=== PATIENT | female | born 1940 | race Caucasian/White ===

== ENCOUNTER → 2017-08-16 10:15 | Outpatient (CLI) | payer MEDICARE, BC, SELFPAY ==
[2017-08-16 12:37] LABS: Anion Gap 8 (5-15); BUN 20 mg/dL (7-18); BUN/Creat Ratio 27.4 RATIO (10-20); Calcium,Total 8.6 mg/dL (8.5-10.1); Chloride 105 mmol/L (98-107); Cholesterol 223 mg/dL (200); Creatinine, Serum 0.73 mg/dL (0.55-1.02); EST Glomerular Filtration Rate 82 mL/min (>60); Est Glom Filt Rate - Afr Amer 100 mL/min (>60); Glucose 80 mg/dL (74-106); High Density Lipoprotein 93 mg/dL; Sodium Level 140 mmol/L (136-145); Thyroid Stim Hormone (TSH) 2.24 uIU/mL (0.358-3.74); Triglycerides 119 mg/dL; Very Low Density Lipoprotein 24 mg/dL (5-40)
== END ==
PROVIDERS: Family Provider Family Medicine; PCP Family Medicine; Visit Provider Family Medicine
DX: I10 Essential (primary) hypertension (principal); E03.9 Hypothyroidism, unspecified; R49.0 Dysphonia
CPT/HCPCS: 36415; 80048; 80061; 84443; 92507

== ENCOUNTER → 2017-09-06 12:59 | Outpatient (CLI) | payer MEDICARE, BC, SELFPAY ==
--- NOTE | 2017-09-06 13:03 | RAD_ITS ---
STUDY: SWALLOWING STUDY REASON FOR EXAM: Female, 77 years old. Dysphagia. TECHNIQUE: The examination was performed with Speech Pathology in attendance. Under fluoroscopic observation, the patient ingested thin barium, thick barium, barium pudding, and barium coated cracker. FLUOROSCOPY TIME: 1:30 minutes/seconds. 1410 spot images were obtained. RADIOLOGIST INVOLVEMENT: Radiologist was present and providing direct supervision. COMPARISON: None. FINDINGS: The following was observed during swallowing of the various mixtures of barium: Thin Barium: There was no evidence of aspiration or laryngeal penetration. Barium Pudding: There was no evidence of aspiration or laryngeal penetration. Barium Coated Cracker: There was no evidence of aspiration or laryngeal penetration. RAD/Swallowing Function w/Video IMPRESSION: Normal tailored barium swallow study. No evidence of increased risk for aspiration. The swallow study findings were discussed with the patient by the speech pathologist at the conclusion of the examination. Please see speech pathology report for more information and recommendations. Electronically Signed: Yasir Calixto MD at 13:58 EDT Tel [phone], Service support ,
--- NOTE | 2017-09-06 13:30 | SP.MBSS_ITS ---
PRIMARY / SECONDARY DIAGNOSIS: dysphagia (R13.10) REFERRING PHYSICIAN: Dr. Sunday Hatch MD CURRENT DIET: regular textures, thin liquids DENTITION: WFL MENTAL STATUS: WNL RESPIRATORY STATUS: O2 via room air PREVIOUS MODIFIED BARIUM SWALLOW STUDY: none REASON FOR REFERRAL: Patient is a 77 year old female referred for a modified barium swallow (MBS) study to objectively assess the Patients oropharyngeal swallow function under fluoroscopy secondary to concerns for PO intake intolerance. Patient currently undergoing skilled speech-language intervention at [facility] / [facility] targeting dysphonia of unknown etiology, with the Patient reporting intermittent globus sensation without odynophagia, occasional jaw pain; Patient further reports gastroesophageal reflux managed well with Omeprazole (40mg). MEDICAL HISTORY: Bronchiolitis obliterans with organizing pneumonia (BOOP), gastroesophageal reflux disease, right bundle branch block, osteoporosis, hypertension, depression, hypothyroidism, status post hip hemiarthroplasty, former smoker. STUDY FINDINGS: Patient participated in a Modified Barium Swallow (MBS) study on 09/06/2017. Dr. Calixto was the radiologist present for this evaluation. This study was recorded in the lateral view and images were sent to PACs for storage. The following consistencies were presented to this patient for analysis of oropharyngeal swallow function: thin liquids, pudding, and a regular textured, Ai [employer] cookie. Results of the MBS are as follows: PENETRATION / ASPIRATION SCALE ([place]): 1 = does not enter airway 2 = enters airway/above vocal folds/ejected 3 = enters airway/above vocal folds/not ejected 4 = enters airway/contacts vocal folds/ejected 5 = enters airway/contacts vocal folds/not ejected 6 = enters airway/below vocal folds/ejected 7 = enters airway/below vocal folds/not ejected despite effort 8 = enters airway/below vocal folds/no effort PENETRATION / ASPIRATION SCALE (SCORE) WITH VIDEOFLOROSCOPIC SCALE SCORE: Thin liquid - 5 mL tsp.: 1 Thin liquids via cup (single sip): 1 Thin liquids via cup (single sip): 1 Thin liquids via cup (single sip): 1 Thin liquids via cup (single sip): 1 Thin liquids via cup (single sip): 1 Thin liquids via cup (single sip): 1 Thin liquids via cup (single sip): 1 Thin liquids via cup (sequential swallows): 1 Pudding via spoon: 1 Regular textured cookie: 1 Thin liquids via straw (single sip): 1 Thin liquids via straw (single sip): 2 IMPRESSION: DIAGNOSIS: swallow function grossly within normal limits ORAL PHASE CHARACTERIZED BY: LABIAL SEAL: no labial escape TONGUE CONTROL DURING BOLUS MANIPULATION: intermittent / brief posterior escape of less than half of bolus BOLUS PREPARATION / MASTICATION: timely and efficient chewing and mashing BOLUS TRANSPORT / LINGUAL MOTION: brisk tongue motion ORAL RESIDUE: complete oral clearance PHARYNGEAL PHASE CHARACTERIZED BY: INITIATION OF PHARYNGEAL SWALLOW: bolus head in valleculae at first hyoid excursion SOFT PALATE ELEVATION: no bolus between soft palate and pharyngeal wall LARYNGEAL ELEVATION: complete superior movement of thyroid cartilage with complete approximation of arytenoids cartilage to epiglottic petiole ANTERIOR HYOID EXCURSION: complete anterior movement EPIGLOTTIC MOVEMENT: complete epiglottic inversion LARYNGEAL VESTIBULE CLOSURE AT HEIGHT OF SWALLOW: complete laryngeal vestibule closure with no air/contrast in laryngeal vestibule PHARYNGEAL STRIPPING WAVE: pharyngeal stripping wave present / complete PHARYNGOESOPHAGEAL SEGMENT OPENING: complete distension and complete duration with no obstruction of flow TONGUE BASE RETRACTION: trace column of contrast between tongue base and posterior pharyngeal wall PHARYNGEAL RESIDUE: trace residue within or on pharyngeal structures ESOPHAGEAL PHASE CHARACTERIZED BY: ESOPHAGEAL BOLUS CLEARANCE IN THE UPRIGHT POSITION: complete clearance; esophageal coating DIET TEXTURE RECOMMENDATIONS: Will recommend a regular textured, thin liquid diet. INTERPRETATION OF RESULTS: The Patient presents with mastication and deglutition abilities found to be grossly within normal limits in comparison to age matched peers. No aspiration appreciated throughout consistencies trialed, slight penetration during thin liquid via straw trials, with results within normal limitations. 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 RECOMMENDATIONS: Provided brief overview of signs and symptoms of aspiration, with recommendations for the Patient to further discuss symptoms with PCP. No further skilled speech-language services warranted at this time targeting dysphagia. ADDITIONAL COMMENTS/RECOMMENDATIONS: Results and recommendations were discussed with the Patient immediately following MBS completion, with the Patient verbalizing understanding and agreement with all recommendations and education provided. IMAGE COUNT: 1410 G-CODES: SWALLOWING [id number] Current Status: SWALLOWING G8997 Goal Status: SWALLOWING G8998 Discharge Status:
== END ==
PROVIDERS: Family Provider Family Medicine; PCP Family Medicine; Visit Provider Otolaryngology
DX: R13.10 Dysphagia, unspecified (principal)
CPT/HCPCS: 74230; 92611; G8996; G8997; G8998

== ENCOUNTER 2017-09-08 14:00 | Outpatient (RCR) | payer MEDICARE, BC, SELFPAY ==
--- NOTE | 2017-08-09 13:16 | HP.SP.AD_ITS ---
History - History Date of Eval: 08/09/17 Previous speech therapy: Yes Results: Pt reports was evaluated for hoarseness at this facility approximately one year ago, but did not participate in treatment due to shingles. Other Relevant Medical History/Diagnoses/Surgery: Pt will be seeing a nurse auditor 08/10/2017 for further evaluation of chronic SOB at rest for the past several months. Pt is currently oxygenating on room air. She was diagnosed was BOOP, a form of pneumonia, a few years ago which has left scar tissue on her lungs. Pt is additionally diagnosed with GERD. Medications related to this diagnosis: Omeprazole DR, 40mg/day, for GERD management. Additionally, ENT gave pt a nasal spray to help with postnasal drainage. Pt reports that with medications, both diagnoses are well managed. Smoking Status: Former smoker Hx Smoking: Yes Years Smokin Hx Smoking Cessation Date: 20 years ago Hx Tobacco Use: No Hx Smoking Exposure: No - Pain Is pain an issue with your current prescribed condition?: No - Personal Patients Living Arrangements: With Significant Other Patient Allergies - Allergies Allergies Gzsyccl-Utv-Tib Reductase Inhibitor Allergy (Verified 04/11/17 16:26) Hives meperidine HCl [From Demerol] Adverse Reaction (Verified 04/11/17 16:26) Nausea/Vom/Diarrhea Objective Oral Motor - Oral Status Dentition: WNL - Labial Impairment: WNL Observation at Rest: WNL Closure: WNL Pucker: WNL Retraction: WNL Alternating Pucker/Retraction: WNL Involuntary Movement noted: No - Labial Comments Comments: Pt reports some left jaw pain with labial retraction and additionally with mastication and oral opening. Has seen a doctor approximately one month ago who did ex-rays but found all structures to be WNL. Per pt, the doctor gave her a plastic tooth gaurd to wear when sleeping. - Lingual Impairment: Mild Protrusion: WNL Lateralization: Mild Involuntary Movement: No - Lingual Comments Comments: Pt with difficulty lateralizing tongue to left side of oral cavity. - Jaw Impairment: Mild Observation at Rest: WNL Symmetry, Range, Strength, Tone: WFL Opening: Mild Closing: WNL Involuntary Movement: No - Jaw Comments Comments: Pt able to open oral cavity to a functional measurement, but reports mild pain. - Respiratory Status Respiratory Status: Room Air Subjective Dysphagia - Symptoms Reported Symptoms/Problems with: Coughing, Choking, Difficulty Swallowing Solids, Difficulty Swallowing Liquids, Difficulty Swallowing Pills - Current Diet Solids Current Diet: Regular - Current Diet Liquids Current Liquids: Thin Objective Dysphagia - Thin Liquids Administred via: Cup Symptoms: Throat Clearing, Couging Laryngeal Elevation: Impaired Oral Holding: No Comments: Administered single sips of thin liquids via cup without overt s/s aspiration. Pt self-fed larger single sips with immediate throat clear followed by cough. Throughout trials, pt with consistent throat clearing and coughing following single sips and consecutive swallows of thin self-fed via cup. - Pureed Laryngeal Elevation: Impaired Oral Holding: No Comments: No overt s/s aspiration with trials of pureed textures. - Regular Laryngeal Elevation: Impaired Oral Holding: No AP Movement: WNL Patient Report: Pt reports having to be careful with dry textures as they seem to get stuck in her throat and tickle her throat. Comments: No overt s/s aspiration with trials of regular textures. Dysphagia Assessment - Impact Comments: The pt reports difficulty swallowing pills as they seem to get stuck in her throat as well as frequent choking when drinking. She states she has to be careful with dry textures and cannot order large sandwhiches as she has pain when opening her mouth wide and when masticating. - Recommendations Modified Barium Swallow/Cookie Swallow Recommended: Yes Subjective Voice - Informal Questioner Do you scream (anger, sporting event, work, noisy envirmonment): None Do you raise your voice (e.g. parenting, calling from room to room, etc.): None Do you talk for long periods of time without a break (teacher, kemp): None Are you a talker: Average Do you clear your throat: More than average Do you cough: More than average Do you sing: Less than average How often do you use the telephone: Less than average Do you do impersonations, character voices or unusual sound effects: None - Intake Water (ounces): 24 Coffee (ounces): 16 - Alcoholic Beverage Intake Intake: Never Subjective Clinical Impression - Adult Clinical Impression Dysphonia: any 'abnormal' vocal quality suggesting an interruption of normal production: Present Hoarseness: excessive 'noise' in the signal creating an unpleasant, rough vocal quality: Present Breathiness: an audible excape of air or a 'weak' vocal tone suggestive of glottal insufficiency: Present Harshness: irregular vocal fold vibrations creating a 'raspy' or unmusical tone ; a combination of hoarseness and breathiness: Present - Non-Phonatory Behaviors/Respiration Reduced loudness or vocal weakness: Present Limited breath support for speech: Present Clavicular breathing: excessive movement of the chest and shoulders during inspiration: Present Objective Voice - Observational Assessment Maximum Phonation Time in seconds: 2.76 S/Z Ratio: 0.85 Sustained /s/: 10.53 Sustained /z/: 12.43 Other Impressions - Comments Voice History -: Pt was seen by Dr. Hatch, ENT, several weeks ago. Per pt report, her vocal folds do not approximate. She states that her cannot understand her and that she is having a great deal of difficulty communicating over the phone. The pt does present with a soft, harsh vocal quality and demonstrates clavicular breathing secondary to shortness of breath. Plan - Plan Plan: Speech-language therapy is recommended at this time as the patient's vocal quality makes it difficult for her to communicate her wants/needs, as well as emergent/medical concerns, across environments. Additionally, the patient's risk for aspiration puts her at further risk for secondary complications. - Recommendations MBS: Yes Treatment Warranted: Yes - Frequency Frequency: 1x/Week Duration: 4-6 Weeks - Prognosis Prognosis: Good - Goals that are Established: Determination:: Goals will be added/modified as deemed necessary and appropriate. Therapy will be discontinued when results of re-evaluation indicate therapy is no longer needed or lack of progress has been documented. - Goal #1-5 Goal #1: The pt will independently demonstrate adequate breath support for speech by utilizing abdominal breathing, as medically able, and appropriate phrasing to reduce harshness and increase vocal intensity Accuracy: 90% # Sessions: 3 Goal #2: The pt will demonstrate adequate vocal hygiene (GERD and postnasal drip management, H2O intake, decreased throat clearing, etc...) Accuracy: 90% # Sessions: 3 Goal #3: The pt will demonstrate improved vocal quality and intensity secondary to completion of vocal adduction exercises Accuracy: 90% # Sessions: 3 Goal #4: The pt will participate in a modified barium swallow study in order to objectively assess oropharyngeal swallow function. Education - Patient Instruction Patient Education: Diagnosis, Treatment Plan, Goals
--- NOTE | 2017-09-08 15:44 | HP.SP.DC ---
ST Discharge Summary - Discharged: Discharge: Kaylie Infante is discharged from skilled speech-language therapy effective 09/08/17. Kaylie attended four sessions following her intial evaluation for vocal hoarseness. Kaylie attended therapy consistently and attempted home recommendations, but limited progress was made overall secondary to poor breath support for phonation due to pulmonary scarring/fibrosis. The pt was educated on vocal adduction exercises to improve mild vocal fold bowing as well as appropriate phrasing during speech. Results of therapy were discussed with Kaylie who agreed to discharge at this time. Please reconsult if pulmonary function improves without change in phonation.
== END 2017-09-08 19:00 | disposition home or self-care (01) ==
LOC: SP 14:00
PROVIDERS: Family Provider Family Medicine; PCP Family Medicine; Visit Provider Otolaryngology
DX: R49.0 Dysphonia (principal)
CPT/HCPCS: 92507; 92524

== ENCOUNTER → 2017-09-21 09:49 | Outpatient (CLI) | payer MEDICARE, BC, SELFPAY ==
--- NOTE | 2017-09-21 10:09 | RAD_ITS ---
STUDY: X-RAY CHEST REASON FOR EXAM: Female, 77 years old. Elevated right hemidiaphragm. TECHNIQUE: PA and lateral views of the chest. COMPARISON: Comparison is made with prior study dated April 11, 2017. FINDINGS: Stable elevation of the right hemidiaphragm. Increased linear markings at the lung bases suggestive of bibasilar scarring. This is essentially unchanged. There is no demonstrated pleural abnormality. Normal size heart. Normal mediastinum and tobi. Normal visualized pulmonary arteries. Normal visualized aortic arch and descending thoracic aorta. There is demineralization of the osseous structures. Normal visualized ribs, clavicles, and shoulders. There is no demonstrated abnormality of the visualized soft tissue structures of the upper abdomen. RAD/Chest PA and Lateral IMPRESSION: Stable elevation of the right hemidiaphragm with stable increased markings at the lung bases suggestive of linear scarring. Electronically Signed: Yasir Calixto MD at 13:04 EDT Tel [phone], Service support ,
--- NOTE | 2017-09-21 10:15 | RAD_ITS ---
STUDY: SNIFF TEST. REASON FOR EXAM: Female, 77 years old. Elevated right hemidiaphragm. FLUOROSCOPY TIME (if supplied): (0:03) minutes/seconds TECHNIQUE: A sniff test was performed under fluoroscopic imaging. COMPARISON: None. FINDINGS: There is elevation of the right hemidiaphragm. There is normal movement of the right and left hemidiaphragms during inspiration and expiration. RAD/Fluoroscopy 1 Hr or Less IMPRESSION: Elevation of the right hemidiaphragm. There is no evidence of paralysis of the diaphragm. Electronically Signed: Yasir Calixto MD at 10:47 EDT Tel [phone], Service support ,
== END ==
PROVIDERS: Family Provider Family Medicine; PCP Family Medicine; Visit Provider Internal Medicine Pulmonary Disease
DX: J98.6 Disorders of diaphragm (principal)
CPT/HCPCS: 71046; 76000

== ENCOUNTER → 2017-11-22 10:48 | Outpatient (CLI) | payer MEDICARE, BC, SELFPAY ==
[2017-11-22 11:36] LABS: Allen Test POS; Base Excess 2 mmol/L (-2 to +2); Bicarbonate 25.3 mmol/L (22-26); Blood Gas Specimen Type ART; O2 Delivery Device Room Air; PO2 72 mmHG (75-100); SITE R Radial; SO2 95 % (95-99); Time Given 1130; Total Carbon Dioxide 26 mmol/L; pH 7.47 (7.35-7.45)
== END ==
PROVIDERS: Family Provider Family Medicine; PCP Family Medicine; Visit Provider Internal Medicine Pulmonary Disease
DX: R06.00 Dyspnea, unspecified (principal); R09.02 Hypoxemia
CPT/HCPCS: 36600; 82803

== ENCOUNTER → 2017-12-28 16:07 | Outpatient (CLI) | payer MEDICARE, BC, SELFPAY ==
[2017-12-28 17:37] LABS: ALB/GLOB Ratio 1.1 RATIO (0.9-2.4); AST(SGOT) 26 U/L (15-37); Alanine Aminotransfer ALT/SGPT 29 U/L (13-56); Alkaline Phosphatase 66 U/L (45-117); Anion Gap 9 (5-15); BUN 20 mg/dL (7-18); BUN/Creat Ratio 25.7 RATIO (10-20); Calcium,Total 9.6 mg/dL (8.5-10.1); Chloride 102 mmol/L (98-107); Creatinine, Serum 0.78 mg/dL (0.55-1.02); EST Glomerular Filtration Rate 76 mL/min (>60); Est Glom Filt Rate - Afr Amer 92 mL/min (>60); Globulin 3.7 g/dL (2.2-4.2); Glucose 79 mg/dL (74-106); Magnesium 2.4 mg/dL (1.6-2.6); Potassium 3.4 mmol/L (3.5-5.1); Protein, Total 7.7 g/dL (6.4-8.2); Sodium Level 139 mmol/L (136-145)
[2017-12-29 12:01] LABS: Vitamin D,25 Hydroxy 45.1 ng/mL (29.95-100.01)
[2017-12-30 09:08] LABS: DHEA Sulfate 205.3 ug/dL (13.9-142.8)
== END ==
PROVIDERS: Family Provider Family Medicine; PCP Family Medicine; Visit Provider Internal Medicine Endocrinology, Diabetes & Metabolism
DX: E55.9 Vitamin D deficiency, unspecified (principal); E03.8 Other specified hypothyroidism; E27.49 Other adrenocortical insufficiency; E83.42 Hypomagnesemia
CPT/HCPCS: 36415; 80053; 82306; 82627; 83735; 82626

== ENCOUNTER → 2018-01-02 14:18 | Outpatient (CLI) | payer MEDICARE, BC, SELFPAY ==
[2018-01-02 15:39] LABS: Anion Gap 9 (5-15); BUN 20 mg/dL (7-18); BUN/Creat Ratio 26.4 RATIO (10-20); Chloride 103 mmol/L (98-107); Creatinine, Serum 0.76 mg/dL (0.55-1.02); EST Glomerular Filtration Rate 79 mL/min (>60); Est Glom Filt Rate - Afr Amer 95 mL/min (>60); Glucose 107 mg/dL (74-106); Potassium 3.5 mmol/L (3.5-5.1); Sodium Level 140 mmol/L (136-145)
[2018-01-02 15:50] LABS: Hematocrit 41.3 % (37-47); Hemoglobin 13.2 g/dl (12.0-15.0); Mean Corpuscular Hgb 28.5 pg (27.0-32.0); Mean Corpuscular Volume 89.2 fL (81-99); RBC Distribution Width CV 13.7 % (11.6-14.6); Red Blood Count 4.63 M/mm3 (4.2-5.4); White Blood Count 7.4 K/mm3 (4.4-11.0)
[2018-01-02 15:51] LABS: Mean Platelet Vol. 10.6 fl (6.2-12.0); Platelet Count 281 K/mm3 (150-450); RBC Distribution Width SD 44.6 fl (35.1-43.9); Scan Indicated on CBC? Y/N NO
== END ==
PROVIDERS: Visit Provider Internal Medicine Pulmonary Disease
DX: I10 Essential (primary) hypertension (principal); R09.02 Hypoxemia; R06.00 Dyspnea, unspecified; J98.6 Disorders of diaphragm
CPT/HCPCS: 36415; 80048; 85027

== ENCOUNTER → 2018-02-19 15:24 | Outpatient (CLI) | payer MEDICARE, BC, SELFPAY ==
--- NOTE | 2018-02-19 15:28 | RAD_ITS ---
STUDY: X-RAY CHEST REASON FOR EXAM: Female, 77 years old. Dyspnea and hypoxemia TECHNIQUE: PA and lateral views of the chest. COMPARISON: 09/21/2017 FINDINGS: Stable elevated right hemidiaphragm. The lungs are clear and expanded. There is no demonstrated pleural abnormality. Normal size heart. Normal mediastinum and tobi. Normal visualized pulmonary arteries. Normal visualized aortic arch and descending thoracic aorta. Normal visualized thoracic spine. Normal visualized ribs, clavicles, and shoulders. There is no demonstrated abnormality of the visualized soft tissue structures of the upper abdomen. RAD/Chest PA and Lateral IMPRESSION: No acute cardiopulmonary disease Electronically Signed: René Sue DO at 14:19 EDT Tel , Service support ,
== END ==
PROVIDERS: Family Provider Family Medicine; PCP Family Medicine; Referring Provider Internal Medicine Pulmonary Disease; Visit Provider Internal Medicine Pulmonary Disease
DX: R06.00 Dyspnea, unspecified (principal); R09.02 Hypoxemia
CPT/HCPCS: 71046

== ENCOUNTER → 2018-09-12 | Outpatient (CLI) | payer MEDICARE, BC, SELFPAY ==
--- NOTE | 2018-09-12 15:14 | NEURO ---
NCS and/or EMG Patient Report Ordering Doctor: Nacho Reeves DATE OF SERVICE: 09/12/18 Kaylie Infante is a 78-year-old female who presents for electrodiagnostic testing of the left upper limb. She reports numbness and weakness about the left hand. Electrodiagnostic findings: The left median motor nerve demonstrates mildly prolonged distal latency with normal amplitude and conduction velocity. Normal left ulnar motor response. Normal median ulnar F waves. Normal sensory responses are noted. Needle EMG testing reveals no evidence of denervation with normal motor unit action potentials. Electrodiagnostic impression: This is an abnormal study in the left upper limb. 1. Electrodiagnostic findings suggestive of left-sided median mononeuropathy. This is consistent with a mild left carpal tunnel syndrome. If there are any further questions, please do not hesitate to contact me.
== END | disposition home or self-care (01) ==
LOC: PSN 14:15
PROVIDERS: Family Provider Family Medicine; PCP Family Medicine; Referring Provider Family Medicine; Visit Provider Family Medicine
DX: R20.0 Anesthesia of skin (principal)
CPT/HCPCS: 95886; 95909

== ENCOUNTER → 2018-12-10 | Outpatient (CLI) | payer MEDICARE, BC, SELFPAY ==
--- NOTE | 2018-12-10 16:53 | RAD_ITS ---
STUDY: X-RAY LEFT FOOT, FIRST TOE REASON FOR EXAM: Female, 78 years old. Trauma TECHNIQUE: 3 view(s) of the toe were obtained. COMPARISON: None. FINDINGS: There is severe diffuse demineralization. There is nondisplaced fracture of the plantar surface of the base of the first distal phalanx. Electronically Signed: Sina Walker MD at 18:24 EDT , Service support , RAD/Toe(s) Min 2 Views
== END | disposition home or self-care (01) ==
LOC: MTLAB 16:47 → MTRAD 16:49
PROVIDERS: Family Provider Family Medicine; PCP Family Medicine; Referring Provider Family Medicine; Visit Provider Family Medicine
DX: S93.502A Unspecified sprain of left great toe, initial encounter (principal); R49.0 Dysphonia
CPT/HCPCS: 73660; 97035; 97110; 97530

== ENCOUNTER → 2018-12-21 | Outpatient (CLI) | payer MEDICARE, BC, SELFPAY ==
--- NOTE | 2018-12-21 15:37 | RAD_ITS ---
STUDY: X-RAY - LEFT FOOT CLINICAL: Female, 78 years old. Pain of the first toe. TECHNIQUE: 3 view(s) of the foot. COMPARISON: None. FINDINGS: Demineralized osseous structures. Small plantar spur and dorsal enthesophyte of the calcaneus. Otherwise unremarkable calcaneus talus and tarsal bones. Mild degenerative changes of the articulations of the hindfoot and midfoot. Normal metatarsi. There is degenerative arthrosis of the metatarsophalangeal joint of the hallux . Normal tibial and fibular sesamoid bones. There is degenerative arthrosis of the interphalangeal joint of the great toe. Normal phalanges of the great toe. Normal second through fifth metatarsophalangeal joints. Mild degenerative narrowing of the interphalangeal joints. The soft tissue structures are unremarkable. RAD/Foot min 3 Views IMPRESSION: Demineralized osseous structures without fracture, osteolytic or blastic bone lesion. Degenerative changes as stated above. Electronically Signed: Shira Pickens MD at 16:04 EDT , Service support ,
== END | disposition home or self-care (01) ==
LOC: MTRAD 15:36
PROVIDERS: Family Provider Family Medicine; PCP Family Medicine; Referring Provider Family Medicine; Visit Provider Family Medicine
DX: M79.672 Pain in left foot (principal); R49.0 Dysphonia
CPT/HCPCS: 73630; 97035; 97110

== ENCOUNTER 2018-12-27 15:30 | Outpatient (RCR) | payer MEDICARE, BC, SELFPAY ==
--- NOTE | 2018-08-10 11:30 | HP.SP.AD ---
History - History Date of Eval: 08/10/18 Previous speech therapy: Yes Results: Pt has been seen at this facility Other Relevant Medical History/Diagnoses/Surgery: Plication of diaphragm performed February 2018 s/p fall (pt had previously been misdiagnosed with BOOP); pt now with elevation of right hemidiaphragm however is functioning adequately. Pt with marking of lung bases suggestive of linear basilar scarring. Pt reports continued SOB however only now with exertion, not at rest. GERD. Chronic post-nasal drip with current associated sinus headaches. Medications related to this diagnosis: GERD well-managed with Omneprazole DR, 40 mg/day. Pt also takes a nasal spray for post-nasal drip, however, reports worsening symptoms lately for which she will be returning to the ENT. Smoking Status: Former smoker Hx Smoking: Yes Years Smokin Hx Smoking Cessation Date: 20 years ago Hx Tobacco Use: No Hx Smoking Exposure: No - Pain Is pain an issue with your current prescribed condition?: No - Personal Visual Assistive Devices: Glasses Patients Living Arrangements: With Significant Other Patient Allergies - Allergies Allergies Qwvqhmv-Qgb-Mbn Reductase Inhibitor Allergy (Verified 04/11/17 16:26) Hives meperidine HCl [From Demerol] Adverse Reaction (Verified 04/11/17 16:26) Nausea/Vom/Diarrhea Subjective Voice - Informal Questioner Do you scream (anger, sporting event, work, noisy envirmonment): None Do you raise your voice (e.g. parenting, calling from room to room, etc.): None Do you talk for long periods of time without a break (teacher, kemp): None Are you a talker: Average Do you clear your throat: More than average Do you cough: More than average Do you sing: Less than average How often do you use the telephone: Less than average Do you do impersonations, character voices or unusual sound effects: None - Intake Water (ounces): 32 Coffee (ounces): 16 Subjective Clinical Impression - Adult Clinical Impression Dysphonia: any 'abnormal' vocal quality suggesting an interruption of normal production: Present Harshness: irregular vocal fold vibrations creating a 'raspy' or unmusical tone; a combination of hoarseness and breathiness: Present - Non-Phonatory Behaviors/Respiration Reduced loudness or vocal weakness: Present Limited breath support for speech: Present Clavicular breathing: excessive movement of the chest and shoulders during inspiration: Present Throat clearing/coughing: Present Objective Voice - Objective data Objective Data: Objective data: Sound pressure level (SPL acoustic correlation of vocal loudness) was measured with a sound level meter at a distance of 40 cm from the patient's mouth. Average conversational loudness is 70-80 dB and sustained phonation duration is 15 to 20 seconds for a typical adult. Sustained Phonatin duration (seconds): 8.38 Other Impressions - Comments Other Impressions -: The pt was seen by Dr. Hatch, ENT, approximately 2 months ago and was referred for speech therapy due to continued dysphonia secondary to vocal folds not fully approximating, per pt report. The pt further reports that there have been no changes in her vocal folds since she was last scoped by Dr. Hatch. Mrs. Infante presents with mild-moderate dysphonia at this time characterized by a soft, harsh vocal quality. She additionally presents with a stooped posture and clavicular breathing, though is no longer demonstrating SOB at rest as she was during therapy at this facility in 2017. Plan - Plan Plan: Skilled speech-language therapy is warranted at this time as the pt's pulmonary function has improved without a significant improvement in vocal quality. It is medically necessary at this time as the pt reports continued difficulty making her wants and needs known in person and on the phone, which may impact her ability to convey important information, especially in emergent situations. - Recommendations Treatment Warranted: Yes - Frequency Frequency: 1x/Week Duration: 2 Months - Prognosis Prognosis: Good - Goals that are Established: Determination:: Goals will be added/modified as deemed necessary and appropriate. Therapy will be discontinued when results of re-evaluation indicate therapy is no longer needed or lack of progress has been documented. - Goal #1-5 Goal #1: The pt will independently verbalize proponents of a tailored vocal hygiene regimen with 90% accuracy across 3 consecutive sessions. Goal #2: The pt will independently demonstrate adequate breath support for speech by utilizing diaphrapmatic breathing and appropriate phrasing to decrease harshness and increase vocal intensity with 90% accuracy across 3 consecutive sessions. Goal #3: The pt will demonstrate improved vocal quality and intensity secondary to completion of vocal adduction exercises with 90% accuracy across 3 sessions. Education - Patient Instruction Patient Education: Diagnosis, Treatment Plan, Goals
--- NOTE | 2018-09-26 15:47 | HP.PTEVAL_ITS ---
Patient's Visit Information BISI STEPHENS is a 78 year old F referred to Physical Therapy by Sunday Hatch with a diagnosis of Frequent falls. Date of Evaluation: 09/26/18 Physical Therapist: Arash Austin, MARTAT, OCS, CSCS - Visit Plan Frequency: 2x /Week Duration: 4-6 Weeks Plan: Neurocom balance test then 2x/week for 4-6 weeks. L ankle coordintation and balance and strength. Fucntional balance per fGa and neurocom results. - Subjective Findings: Sees Speech therapist for vocal cords. She was was concerned with falling. Fell 3x since starting to see speech. Loses balance and falls. No spinning. Does get HAYES and sees ENT who sent to [facility]. Had MRI after last fall and it was OK of head. Has L foot nerve problems from shingles for the last year. Does not use cane or walker during day. Has walker that she sometimes uses at night. No falls at night. No pain or injuries with falling. 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 Sleeps well with ambien. Spends day: relaxing with feet up and watches TV and reads. No regular ex. No outdoor work. Drives OK. Steps at home seem ok with rail. Gets lightheaded feeling most of time and not changing, been there a year. Goes to [employer] class with . - Objective L ankle weaker than R in DF and eversion and diminished sensation L foot and ankle to gross light touch. reflexes 2/3 patella and achilles. Strength 4- L DF adn eversion vs 4 on R and 4 inv PF B. R hip flexion 4 and L 4-, knee flex ext 4- L and 4/5 R. Hip abd and ext 3+ B. Walks I on firm flat surface. Trasnfers i to adn fro supine adn sit. Steps require rail and descends with R only, ascends reciprocally. Coordination in L ankle toe taps and heel taps is poor L and OK R. Heel to wilcox test is slow. 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 Rehabilitation Potential: Fair - Anticipated Interventions Patient/Client Instruction: Educate patient on: Condition, Plan of Care For the Purpose of:: To improve muscle performance and motor function, To increase tolerance to activity/condition/position Therapeutic Exercise to Include: Strength training, Balance training, Coordination, Flexibilty training, Gait and locomotor training For the Purpose of:: To increase ROM, To increase tolerance to activity/condition/position, To improve ability of physical actions for home/community/work/leisure, To improve gait and locomotor functions Thank you for the opportunity to evaluate your patient. For Medicare and Medicare HMO plans, please review the plan of care and approve it. It will need to be FAXED BACK to us at [phone] for Medicare purposes. For Medicare only, by signing this I certify the plan of care. Please let me know if there are questions or concerns regarding this plan of care. Physician Signature: Date:
--- NOTE | 2018-10-08 12:44 | HP.PTCOM ---
PT Communication Note 10/08/[address] Reeves, Thank you for the referral of Kaylie to [email or web address] for Balance assessment. I have enclosed a copy of the results for your review. In summation, she scored low on prioritization of sensory systems. She also score low on forward and backward weight shifting ability in the Limits of Stability test. With these results in mind, I plan to see her 2x/week for 4 weeks for exercises for baalnce to help improve these deficits. Please contac me if there are questions about her therapy. Sincerely, Arash Austin, DPT, OCS, CSCS Contact Information
--- NOTE | 2018-10-12 14:22 | HP.SP.DC_ITS ---
ST Discharge Summary - Discharged: Discharge: Kaylie Infante is discharged from outpatient speech-language therapy effective 10/12/2018. 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 Pt initially thought breath support was improving but continued to present with mild shortness of breath at rest and following minimal exertion (walking). Attempts to increase breath support via diaphragmatic breathing and phrasing, as well as adduction exercises to further improve vocal intensity, resulted in minimal functional vocal change. Additionally, pt continues to present with likely well-managed GERD as well as rhinitis and post-nasal drip which are chronicly symptomatic despite medications. Compensatory strategies were discussed at length (facing listener, decreasing extraneous noise, increasing H20 intake, etc...) in the absence of substantial vocal improvement. Pt may seek further voice therapy following follow-up with her processing assistant and improved respiration/breath support. Please reconsult as necessary.
--- NOTE | 2018-11-07 16:03 | HP.PTREVAL ---
Sunday Hatch, It has been my pleasure to treat BISI STEPHENS over the last 8 visits for Frequent falls. Please see the progress note below for an update on the physical therapy plan of care! Subjective: Feeling better. Able to step off the curb and back up without help where she parked today. used to have to help her. Feels like she needs to continue therapy to get better at speed of walking. No LOB lately. Needs to be faster to keep up with . Has some toruble getting L leg out of car. Objective/Function: FGA is +2 today. Pt safe but slow and looks down with all ambulation. Able to walk looking straight ahead and with good speed but does nto do this on her own/fearful. Stpe with either foot adn requires 1 rail for confidence, avoids FW weight shift descending steps, prefers to use L. Curbs are slow and hesitant but can get up and down 3-4 [address] without assist with either foot. OVERALL GOOD IMPROVEMENTS, APPROPRIATE TO CONTINUE WITH FAIR PROGNOSIS. Plan Plan: 2X/WEEK FOR 4 WEEKS... Please work on posture with ambulation and speed, also on FW weight shift descending steps without rail. Also on trasnfer into car with both legs(hip flexion while transitioning. Ensure patient doing home strength and add to it as needed. Goals Goal 1:: I approp ex for balance and L ankle Goal Time Frame: 4-6 Weeks Goal Progress: Goal Met Goal 2:: 2430 FGA to diminish fall risk Goal Time Frame: 4-6 Weeks Goal Progress: Progressing, approp. Goal 3:: Steps reciprocal with ne rail Goal Time Frame: 4-6 Weeks Goal Progress: Progressing, approp Goal 4:: Pt feel 505 improved in mobility safety and no falls for 4 weeks Goal Time Frame: 4-6 Weeks Goal Progress: Goal Met Goal 5:: Pt walk one lap 400+ feet looking straight ahead and under 2 minutes without VC. Goal Time Frame: 2-4 Weeks Goal Progress: NEW GOAL Anticipated Interventions Patient/Client Instruction: Educate patient on: Condition, Plan of Care For the Purpose of:: To improve muscle performance and motor function, To increase tolerance to activity/condition/position Therapeutic Exercise to Include: Strength training, Balance training, Coordination, Flexibilty training, Gait and locomotor training For the Purpose of:: To increase ROM, To increase tolerance to activity/condition/position, To improve ability of physical actions for home/community/work/leisure, To improve gait and locomotor functions Please do not hesitate to contact me at [phone] by phone or if you have questions or concerns regarding this new plan of care! Sincerely, Arash Austin, DPT, OCS, CSCS
--- NOTE | 2018-11-28 12:11 | HP.OTEVAL_ITS ---
Patient's Visit Information KAYLIE STEPHENS is a 78 year old F, referred to Occupational Therapy by Sunday Hatch, with a diagnosis of L UE CTS. Date of Evaluation: 11/28/18 Occupational Therapist: Nilsa Joseph, OTR/Ethel - Subjective Subjective: Arrived to OT evaluation. She noted that symptoms started about a couple months ago. She explained she had previously broke L hand around MCP of L RF. SHe did have nerve conduction test completed and it resulted in CTS. - ADLs Dressing: Bra, Pants, Socks, Shoes, Necklace, Earrings Fasteners: Buttons, Zippers, [place], Belt Eating: Use silverware, Cut food, Drink from glass Bathing: Handle washcloth & soap, Squeeze shampoo bottle Toileting: Manage clothing Kitchen: Chop with knife, Peel fruits & vegetables, Open jars, Open bottle caps, Ziplock bags, Lift saucepan, Take dish out of oven, Place dish in microwave Household: Vacuum, Laundry Comments: helps 1x weekly for laundry Miscellaneous: Open medication bottle, Handle money (change), Take things out of wallet, Open envelope, Carry shopping bag, Turn pages in book, Do crafts, Sew, Suzan/knit/needlework Comments: Kaylie is R hand dominant. - Pain Left Wrist 0 Pain Intensity Range: 0, 4 - ROM Forearm: WFL Wrist: flexion R 0-70, L 0-66; ext. R 0-44, L 0-45 MP: WFL PIP: WFL DIP: WFL - Strength Senior Online Marketing Manager: R 39, L 30 Lateral Pinch: R 12, L 10 Tripod Pinch: R 12, L 11 Tip-to-Tip Pinch: R 5, L 7 Strength Comments: Noted difficulty with graded sensory pressure to complete task. She explained hs eis often dropping things at home. - Sensation Thumb: R 3.84, L 2.83 Index: R 3.84, L 3.61 Middle: R 2.83, L 2.83 Ring: R 2.83, L 2.83 Little: R 2.83, L 2.83 Stereognosis: Normal - Right, Abnormal - Left Sensation Comments: Some increased time needed with stereognosis so counted as abnormal but able to differeniate with increased time. - Nine Hole Peg Right: 35.55 s Left: 54.28 s - Quick DASH-Disab of Arm,Shoulder& Hand Quick DASH Score: 54.5450 - Goals Goal:: Kaylie to increased L gang tailer by 10 lbs to promote increased strength and endurace of lUE to rpomote reutrning to increased participating in ADL/IADls by d/c. Goal:: Kaylie to increased L UE dexterity and coordination to complete fx tasks as measurement through decreased time on 9 hole pegboard test 2/3 trials 75% of the time by d/c. Goal:: Kaylie to be (i) to complete sensory reeducation and safety techniques to promote increased ability to complete fx tasks 2/3 trials 75% of the time by d/c. Goal:: Kaylie to be mod I to complete appropriate ergonomic and body positioning to promote increased fx of LUE and decreased symptoms 4/5 trials 80% of the time by d/c. Goal:: Kaylie to be mod I to complete all ADL/IADls at PLOF including opening jar to promote increased (I) 4/5 trials 80% of the time by d/c. Goal:: Kaylie to be mod I to complete daily HEP to promote strength and reduction of symptoms 4/5 trials 80% of the time by d/c. - Rehabilitation General Assessment: Kaylie arrived for OT evaluation on this date of 11/28/18. She was referred due to LUE carpal tunnel symptoms. She noted nerve conduction completed and indicated CTS of LUE. She exhibits some increased pain and decreased strength. Kaylie would benefit from skilled OT services to promote strength, sensory compensation and awareness, and returning to PLOF. Rehabilitation Potential: Good - Anticipated Interventions Anticipated Interventions: Strengthening, Edema Control, Scar Care, Triggerpoint Release, Modalities, Orthoses, Joint Protection/Energy Conservation, Ergonomic Education, Fine Motor Coord/Placido, ADL Training, Caregiver Training, Home Program - Visit Plan Frequency: 2x /Week Duration: 4 Weeks General Plan: Kaylie to complete daily HEP to promote progression through therapy as well as modalities to decrease inflammation and symptoms, sensory compensation, ROM, strength, and general techniques to promote returning to PLOF. TEXT: Thank you for the opportunity to evaluate your patient. For Medicare and Medicare HMO plans, please review the plan of care and approve it. It will need to be FAXED BACK to us at [phone] for Medicare purposes. Please let me know if there are questions or concerns regarding this plan of care. Physician Signature: Date:
--- NOTE | 2018-12-27 16:10 | HP.OTDCSUM ---
HP - OT D/C Summary It has been my pleasure to treat BISI STEPHENS under orders from Sunday Hatch, for the diagnosis of L UE CTS for a total of 9 visit(s). Please see the following information for a summary of their discharge status. - Overall Improvement % Improvement: 75 - Objective Objective/Function: Completed reassessment on this date of 12/27/18 and results as follows: Strength: - Poultry Scientist: R 40, L 34 lbs. - lateral : R 12, L 12 lbs. - tripod: R 12, L 10 lbs. - pincer R 7, L 6 lbs. Sensation: thumb R 3.22, L 3.61. 2nd R 3.22, L 2.83. 3rd R 3.22, L 3.22. 4th R 3.22, L 3.22. 5th R 2.83 ,L 3.22. Pain and tingling have subsided and she has not experience symptoms for about a week. - Goals Patient Goals: Regain Mobility, Regain Strength, Decrease Pain, Return to Work, Decrease Swelling/Stiffness, Improve Fine Motor Skills, Use Hand/Wrist/Arm Normally Again, Sleep Better, Decrease Tingling/Numbness, Increase ROM, Be More Independent in ADLS, Resume Former Household Responsibilities (Cooking,Cleaning,Yard, etc.), Resume Hobbies Goal:: Bisi to increased L rn paralegal by 10 lbs to promote increased strength and endurace of lUE to rpomote reutrning to increased participating in ADL/IADls by d/c. Goal:: Bisi to increased L UE dexterity and coordination to complete fx tasks as measurement through decreased time on 9 hole pegboard test 2/3 trials 75% of the time by d/c. Goal:: Bisi to be (i) to complete sensory reeducation and safety techniques to promote increased ability to complete fx tasks 2/3 trials 75% of the time by d/c. Goal:: Bisi to be mod I to complete appropriate ergonomic and body positioning to promote increased fx of LUE and decreased symptoms 4/5 trials 80% of the time by d/c. Goal:: Bisi to be mod I to complete all ADL/IADls at [facility] [address] including opening jar to promote increased (I) 4/5 trials 80% of the time by d/c. Goal:: Bisi to be mod I to complete daily HEP to promote strength and reduction of symptoms 4/5 trials 80% of the time by d/c. - Plan Plan: Bisi has made significant progress and symptoms of numbness and tingling have fully dissolved. If symptoms return she is to call with questions/concerns; card provided. Bisi is to complete HEP as set up over the course of therapy. She has completed training and handouts on topics discussed. - D/C Information If there are questions or concerns regarding this patient's occupational therapy, please fell free to call me at [phone]. Thank you for the referral of this patient. Sincerely, Nilsa Joseph, OTR/L
== END 2018-12-27 19:00 | disposition home or self-care (01) ==
LOC: OT 15:30
PROVIDERS: Family Provider Family Medicine; PCP Family Medicine; Referring Provider Otolaryngology; Visit Provider Otolaryngology
DX: R49.0 Dysphonia (principal)
CPT/HCPCS: 92507; 92524; 97035; 97110; 97116; 97140; 97162; 97166; 97168; 97530; 97750

== ENCOUNTER → 2019-02-28 | Outpatient (CLI) | payer MEDICARE, BC, SELFPAY ==
--- NOTE | 2019-02-28 16:29 | RAD_ITS ---
STUDY: X-RAY LEFT FOOT, FIRST TOE REASON FOR EXAM: Female, 78 years old. Great toe pain TECHNIQUE: 3 view(s) of the toe were obtained. COMPARISON: None. FINDINGS: The bones are osteopenic. Normal visualized metatarsus. Normal metatarsophalangeal (M.T.P) joint. Normal interphalangeal joints. Normal phalanges and interphalangeal joints. The soft tissue structures are unremarkable. RAD/Toe(s) Min 2 Views IMPRESSION: Generalized osteopenia. There is no evidence of acute fracture, dislocation, or significant degenerative disease. Electronically Signed: Jeremy Martines MD at 20:41 EST , Service support ,
== END | disposition home or self-care (01) ==
LOC: MTRAD 16:28
PROVIDERS: Family Provider Family Medicine; PCP Family Medicine; Referring Provider Family Medicine; Visit Provider Family Medicine
DX: M79.675 Pain in left toe(s) (principal)
CPT/HCPCS: 73660

== ENCOUNTER → 2019-03-25 18:15 | Outpatient (CLI) | payer MEDICARE, BC, SELFPAY | PROVIDERS: Family Provider Family Medicine; PCP Family Medicine; Referring Provider Family Medicine; Visit Provider Family Medicine | DX: R15.9 Full incontinence of feces (principal) | CPT/HCPCS: 87493; 87506 ==

== ENCOUNTER 2019-07-03 08:04 | Emergency (ER) | payer MEDICARE, BC, SELFPAY ==
[2019-07-03 08:07] VITALS: BP 163/64; PULSE 69; RESP 16; TEMP 36.4; O2SAT 94; BMI 25.0
--- NOTE | 2019-07-03 08:18 | CT_ITS ---
STUDY: CT THORACIC SPINE WITHOUT CONTRAST REASON FOR EXAM: Female, 79 years old. FALL LAST NIGHT AND 4 DAYS AGO RADIATION DOSAGE (If Supplied By Facility): CTDIvol = ( 18.51 ) mGy, DLP = ( 685.69 ) mGycm TECHNIQUE: The patient was scanned in a multi detector CT scanner. High resolution imaging was performed. Images were obtained from T1 to T12 vertebra level. Sagittal and coronal images were reconstructed. Individualized dose optimization techniques were used for this CT. COMPARISON: None. FINDINGS: Normal visualized cervical spine. There is an increased kyphosis of the thoracic spine. There is no substantial scoliosis. There is evidence of almost complete collapse of the T6 vertebrae. This was seen on the prior chest radiograph dated February 19, 2018. There is multilevel degenerative disc disease with loss of the disc space heights. Multilevel spondylosis. Atherosclerotic changes of the descending thoracic aorta. Increased markings at the lung bases suggestive of bibasilar atelectasis. 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 Findings suggestive of bibasilar atelectasis at the lung bases. Electronically Signed: Yasir Calixto, at 8:58 EDT , Service support ,
--- NOTE | 2019-07-03 08:18 | CT_ITS ---
STUDY: CT CERVICAL SPINE WITHOUT CONTRAST REASON FOR EXAM: Female, 79 years old. FALL LAST NIGHT AND 4 DAYS AGO RADIATION DOSAGE (If Supplied By Facility): CTDIvol = ( 13.95 ) mGy, DLP = ( 276.16 ) mGycm TECHNIQUE: High resolution transaxial imaging was performed without contrast material. Sagittal and coronal images were reconstructed. Individualized dose optimization techniques were used for this CT. COMPARISON: None FINDINGS: Normal craniovertebral junction. There are degenerative changes of the anterior atlantoaxial articulation. Normal odontoid process. Normal cervical lordosis. Normal vertebral bodies and posterior osseous elements. C2-3: Facet joint osteoarthritis and hypertrophy worse on the right side. No significant narrowing is seen. C3-4: Marked degree of disc space narrowing with anterior spondylosis. There is evidence of facet joint osteoarthritis. Uncovertebral arthrosis. No significant stenosis is seen. C4-5: Mild degree of disc space narrowing. C5-6: Marked degree of disc space narrowing with the spondylosis and uncovertebral arthrosis. Mild to moderate degree of bilateral neural foraminal stenosis worse on the right side. C6-7: Marked degree of disc space narrowing with spondylosis. Facet joint osteoarthritis and hypertrophy. No significant stenosis is seen. C7-T1: Normal endplates. Normal disc height and morphology. Normal central canal and intervertebral neuroforamina. Atherosclerotic calcification of the carotid bifurcations. CT/Spine Cervical without Contras IMPRESSION: Multilevel degenerative changes, as described above. Electronically Signed: Yasir Calixto, at 8:56 EDT , Service support ,
--- NOTE | 2019-07-03 08:20 | RAD_ITS ---
STUDY: X-RAY - LEFT HAND REASON FOR EXAM: Female, 79 years old. Fell today -- pain and bruising TECHNIQUE: 3 view(s) of the hand. COMPARISON: None. FINDINGS: Normal radiocarpal articulation. Normal distal radioulnar joint. Normal visualized carpal bones. Normal carpal articulations There is degenerative arthrosis of the carpometacarpal (CMC) articulation of the thumb. Normal second through fifth carpometacarpal joints. There is evidence of deformity and shortening of the fourth metacarpal suggestive of an old healed fracture. Normal metacarpophalangeal joint of the thumb. Normal interphalangeal joint of the thumb. Normal proximal and distal phalanges of the thumb. Normal metacarpophalangeal joints of the second through fifth fingers. There is diffuse articular joint space narrowing of the proximal and distal interphalangeal joints of the second through fifth fingers, but without erosive changes or periarticular soft tissue swelling. Normal phalanges of the second through fifth fingers. The soft tissue structures are unremarkable. RAD/Hand Min 3 Views IMPRESSION: Degenerative joint disease of the hand and wrist, as described above. Shortening and deformity of the fourth metacarpal most likely secondary to an old healed fracture. Electronically Signed: Yasir Calixto, at 9:00 EDT , Service support ,
--- NOTE | 2019-07-03 08:20 | ED.VIS.GEN ---
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 She fell into the chair and ended up falling she states onto her left side. She notes pain in her neck and her mid back. She states it feels like some muscle soreness but is concerned with her osteoporosis that she may have a compression fracture. She states she also fell on Monday attempting to close the car door when she turned she got dizzy and fell down. She injured her left hand at that time. She has had dizziness for 2 years. Occasionally she will use a cane to help ambulate. She denies any head injury. She has been able to bear weight with no leg symptoms. No neurologic deficits noted by the patient. No headache. Past Medical History - Allergies and Home Meds Allergies/Adverse Reactions: Allergies Yihplsm-Zbw-Wkc Reductase Inhibitor Allergy (Verified 07/03/19 08:07) Hives meperidine HCl [From Demerol] Adverse Reaction (Verified 07/03/19 08:07) Nausea/Vom/Diarrhea Primary Care Physician: Nacho Reeves [Primary Care Provider] - Surgical History: - - right hp hemiarthroplasty 12/07 Smoking Status: Former smoker - Family History Maternal Family History: Reports: Stroke - age 72 Paternal Family History: Reports: Pulmonary Disease - age 86 Review of Systems General: Denies: Chills, Fever, Sweats Eyes: Denies: Visual changes - bilaterally, Diplopia ENT: Denies: Rhinorrhea, Sore throat Cardiovascular: Denies: Chest pain, Palpitations Respiratory: Denies: Dyspnea, Cough, Dyspnea on exertion Gastrointestinal: Denies: Abdominal pain, Nausea, Vomiting, Diarrhea, Melena, Hematochezia Genitourinary: Denies: Dysuria, Hematuria, Frequency Musculoskeletal: Reports: Neck pain, Back pain. Denies: Extremity Pain Skin: Denies: Rash, Wounds Neurological: Denies: Headache, Weakness, Numbness Physical Exam Vital Signs/Narrative: Vital Signs Temp Pulse Resp BP Pulse Ox 07/03/19 08:07 97.6 F L 69 16 163/64 H 94 Inital Vital Signs reviewed: Yes General: Well nourished, Well developed, No Acute Distress Head: Normocephalic, Atraumatic Eyes: Perrl, EOMI ENT: Moist mucous membranes, No rhinorrhea Neck: Supple, - - Diffusely tender including the midline of the cervical and thoracic spine Cardiovascular: Regular rate, Regular rhythm, No murmurs Respiratory: No distress, CTA bilaterally, Chest nontender Abdomen: Soft, Nontender, Nondistended, Normal bowel sounds Back: Spinal tenderness - Diffuse thoracic and midline tenderness of the thoracic spine. There is no lumbar pain. Extremities: Nontender, No edema Skin: Normal color, No rash Neurological: Alert, Oriented x3, Cranial nerves II-XII grossly intact, Normal Strength, Normal Sensation Psychological: Normal affect, Normal Mood Diagnostic/Tx/Re-eval - Medical Decision Making I expressed my concern with the patient's high fall risk that she really should be using a walker or some type of ambulation device to help steady her. Family is in agreement that she will be using a walker. I will give him tips on fall prevention. We did CT the cervical spine and thoracic spine which showed an old compression fracture but no acute. Also x-ray of the left hand and that was negative for acute fracture. Family is comfortable with outpatient management ED Disposition - Plan for ED Patient: Disposition: Home or Assisted Living Diagnosis: Upper back strain Instructions: Fall Prevention, Back Sprain/Strain Referrals: Nacho Reeves [Primary Care Provider] - 3-5 Days
[2019-07-03 10:09] VITALS: BP 163/64; PULSE 78; RESP 16; O2SAT 97
== END 2019-07-03 10:10 | disposition home or self-care (01) ==
PROVIDERS: Emergency Provider Emergency Medicine; PCP Family Medicine
DX: S29.012A Strain of muscle and tendon of back wall of thorax, initial encounter (principal); Z87.891 Personal history of nicotine dependence; W07.XXXA Fall from chair, initial encounter; Y93.89 Activity, other specified; Y92.89 Other specified places as the place of occurrence of the external cause; Y99.8 Other external cause status
CPT/HCPCS: 72125; 72128; 73130; 99284

== ENCOUNTER → 2020-01-09 | Outpatient (CLI) | payer MEDICARE, BC, SELFPAY ==
[2020-01-09 17:37] LABS: Absolute Lymphocyte Count 2.62 X10^3/uL (0.83-4.51); Absolute Neutrophil Count 5.8 X10^3/uL (2.0-7.7); Basophil# 0.06 X10^3/uL; Basophil% 0.6 % (0-1); Eosinophil# 0.14 X10^3/uL; Eosinophils% 1.5 % (0-5); Hematocrit 43.1 % (37-47); Hemoglobin 13.3 g/dL (12.0-15.0); Lymphocyte # 2.62 X10^3/ul (4.0); Lymphocyte % 27.9 % (19-41); Mean Corp Hgb Conc 30.9 g/dL (32-36); Mean Corpuscular Hgb 27.7 pg (27.0-32.0); Mean Corpuscular Volume 89.8 fL (81-99); Mean Platelet Vol. 10.3 fl (6.2-12.0); Monocyte# 0.74 X10^3/uL; Monocyte% 7.9 % (0-10); NRBC Flagged by Analyzer 0 % (0-5); Neutrophil # 5.82 X10^3/uL (2.7-7.7); Neutrophil % 61.9 % (47-70); Platelet Count 315 K/mm3 (150-450); RBC Distribution Width CV 13.5 % (11.6-14.6); RBC Distribution Width SD 44.4 fl (35.1-43.9); White Blood Count 9.4 K/mm3 (4.4-11.0)
[2020-01-09 17:51] LABS: Vitamin D,25 Hydroxy 41.7 ng/mL
[2020-01-09 17:54] LABS: Vitamin B12 > 2000 pg/mL (211-911)
[2020-01-09 18:31] LABS: ALB/GLOB Ratio 1.2 RATIO (0.9-2.4); AST(SGOT) 24 U/L (15-37); Alanine Aminotransfer ALT/SGPT 32 U/L (13-56); Albumin, Serum 4.3 g/dL (3.2-5.0); Alkaline Phosphatase 59 U/L (45-117); Anion Gap 8 (5-15); BUN 18 mg/dL (7-18); BUN/Creat Ratio 26.2 RATIO (10-20); Calcium,Total 9.5 mg/dL (8.5-10.1); Chloride 100 mmol/L (98-107); Creatinine, Serum 0.69 mg/dL (0.55-1.02); EST Glomerular Filtration Rate 87 mL/min (>60); Est Glom Filt Rate - Afr Amer 106 mL/min (>60); Globulin 3.7 g/dL (2.2-4.2); Glucose 92 mg/dL (74-106); Potassium 3.9 mmol/L (3.5-5.1); Sodium Level 137 mmol/L (136-145); Thyroid Stim Hormone (TSH) 2.03 uIU/mL (0.358-3.74)
[2020-01-09 21:44] LABS: Folates, (Folic Acid) > 100.00 ng/mL (3.1-55.4)
[2020-01-16 05:22] LABS: Rapid Plasmin Reagin (RPR) NONREACTIVE (NONREACTIVE)
== END | disposition home or self-care (01) ==
LOC: POLAB3 15:44
PROVIDERS: PCP Family Medicine Geriatric Medicine; Visit Provider Family Medicine Geriatric Medicine
DX: E55.9 Vitamin D deficiency, unspecified (principal); I10 Essential (primary) hypertension; G31.83 Neurocognitive disorder with Lewy bodies
CPT/HCPCS: 36415; 80053; 82306; 82607; 82746; 84443; 85025; 86592

== ENCOUNTER → 2020-01-29 | Outpatient (CLI) | payer MEDICARE, BC, SELFPAY | END | disposition home or self-care (01) | LOC: PSN 14:06 | PROVIDERS: PCP Family Medicine Geriatric Medicine; Referring Provider Family Medicine Geriatric Medicine; Visit Provider Family Medicine Geriatric Medicine | DX: R20.0 Anesthesia of skin (principal) ==

== ENCOUNTER → 2020-02-26 08:36 | Outpatient (CLI) | payer MEDICARE, BC, SELFPAY ==
--- NOTE | 2020-02-26 14:30 | NEURO ---
NCS and/or EMG Patient Report Ordering Doctor: Eber Corcoran Chi DATE OF SERVICE: 02/26/20 Kaylie Infante presents for electrodiagnostic testing of the left lower limb. She reports numbness and tingling in the left foot for the past 2 years. She reports difficulty ambulating. Electrodiagnostic findings: Left peroneal nerve demonstrates prolonged distal latency with normal amplitude and conduction velocity. Normal left tibial motor response. Prolonged left H reflex. Normal left sural and superficial peroneal latency. On needle EMG, all muscles tested in the left lower limb showed no evidence of denervation with normal motor unit action potentials. It is noted that the patient did demonstrate poor tolerance for the examination. Electrodiagnostic impression: This is an abnormal study in the left lower limb. 1. 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 Would consider correlation with the opposing limb to better evaluate for polyneuropathy. If there are any further questions, please do not hesitate to contact me.
== END ==
PROVIDERS: PCP Family Medicine Geriatric Medicine; Referring Provider Family Medicine Geriatric Medicine; Visit Provider Family Medicine Geriatric Medicine
DX: R20.0 Anesthesia of skin (principal); R20.2 Paresthesia of skin
CPT/HCPCS: 95886; 95909

== ENCOUNTER → 2020-04-10 09:31 | Outpatient (CLI) | payer MEDICARE, BC, SELFPAY ==
[2020-04-10 13:21] LABS: Absolute Lymphocyte Count 2.18 X10^3/uL (0.83-4.51); Absolute Neutrophil Count 4.4 X10^3/uL (2.0-7.7); Basophil# 0.05 X10^3/uL; Basophil% 0.7 % (0-1); Eosinophil# 0.09 X10^3/uL; Eosinophils% 1.2 % (0-5); Hematocrit 45.2 % (37-47); Hemoglobin 14.4 g/dL (12.0-15.0); Lymphocyte # 2.18 X10^3/ul (4.0); Lymphocyte % 28.9 % (19-41); Mean Corp Hgb Conc 31.9 g/dL (32-36); Mean Corpuscular Hgb 28.9 pg (27.0-32.0); Mean Corpuscular Volume 90.8 fL (81-99); Mean Platelet Vol. 10.7 fl (6.2-12.0); Monocyte% 10.6 % (0-10); NRBC Flagged by Analyzer 0 % (0-5); Neutrophil % 58.3 % (47-70); Platelet Count 340 K/mm3 (150-450); RBC Distribution Width SD 42.7 fl (35.1-43.9); Red Blood Count 4.98 M/mm3 (4.2-5.4); White Blood Count 7.5 K/mm3 (4.4-11.0)
[2020-04-10 13:28] LABS: Vitamin D,25 Hydroxy 28.5 ng/mL
[2020-04-10 13:38] LABS: ALB/GLOB Ratio 1.1 RATIO (0.9-2.4); AST(SGOT) 20 U/L (15-37); Alanine Aminotransfer ALT/SGPT 28 U/L (13-56); Albumin, Serum 4.1 g/dL (3.2-5.0); Alkaline Phosphatase 61 U/L (45-117); Anion Gap 6 (5-15); BUN 19 mg/dL (7-18); BUN/Creat Ratio 25.3 RATIO (10-20); Calcium,Total 9.1 mg/dL (8.5-10.1); Chloride 105 mmol/L (98-107); Creatinine, Serum 0.75 mg/dL (0.55-1.02); EST Glomerular Filtration Rate 79 mL/min (>60); Est Glom Filt Rate - Afr Amer 96 mL/min (>60); Globulin 3.8 g/dL (2.2-4.2); Glucose 92 mg/dL (74-106); Potassium 3.7 mmol/L (3.5-5.1); Protein, Total 7.9 g/dL (6.4-8.2); Sodium Level 138 mmol/L (136-145); Thyroid Stim Hormone (TSH) 2.81 uIU/mL (0.358-3.74)
== END ==
PROVIDERS: PCP Family Medicine Geriatric Medicine; Referring Provider Family Medicine Geriatric Medicine; Visit Provider Family Medicine Geriatric Medicine
DX: I10 Essential (primary) hypertension (principal); E55.9 Vitamin D deficiency, unspecified
CPT/HCPCS: 36415; 80053; 82306; 84443; 85025

== ENCOUNTER → 2020-04-22 12:57 | Outpatient (CLI) | payer MEDICARE, BC, SELFPAY ==
--- NOTE | 2020-04-22 13:45 | MRI_ITS ---
STUDY: MRI LUMBAR SPINE WITHOUT CONTRAST REASON FOR EXAM: Female, 80 years old. LEFT leg weakness for over 1 year, no back pain, NKI TECHNIQUE: Standardized fat and water weighted pulse sequences were obtained in the sagittal and axial planes. The axial images are degraded by motion artifact limiting evaluation. COMPARISON: Lumbar spine x-ray dated AUGUST 21, 2015. FINDINGS: No visualized fracture or compression deformity or aggressive process. Disc desiccation is present at all levels. Normal lumbar lordosis. There is a levoscoliosis of the lumbar spine. Normal conus medullaris that terminates at the L1 level. L1-2: Normal endplates. Normal disc height and morphology. Normal bilateral facet joints. Normal central canal and bilateral lateral recesses. Normal bilateral intervertebral neural foramina. L2-3: Normal endplates. Normal disc height and morphology. Normal bilateral facet joints. Normal central canal and bilateral lateral recesses. Normal bilateral intervertebral neural foramina. L3-4: Normal endplates. Mild disc space narrowing and annular bulging. Normal bilateral facet joints. Normal central canal and bilateral lateral recesses. Normal bilateral intervertebral neural foramina. L4-5: Mild disc space narrowing with minimal annular bulging and anterior endplate spurs. The facet joints are mildly hypertrophied. Normal central canal and bilateral lateral recesses. Normal bilateral intervertebral neural foramina. L5-S1: Normal endplates. Normal disc height and morphology. Minimal posterior annular bulge associated with a small annular tear Normal bilateral facet joints. Normal central canal and bilateral lateral recesses. Normal bilateral intervertebral neural foramina. Normal visualized sacral ala. Normal visualized paraspinous soft tissue structures. MRI/Spine Lumbar (Routine) IMPRESSION: 1. Multilevel degenerative changes, as described above. Electronically Signed: Yury Velez MD at 23:53 EST , Service support ,
== END ==
PROVIDERS: PCP Family Medicine Geriatric Medicine; Referring Provider Family Medicine Geriatric Medicine; Visit Provider Family Medicine Geriatric Medicine
DX: M54.5 Low back pain (principal)
CPT/HCPCS: 72148

== ENCOUNTER → 2020-05-01 12:21 | Outpatient (CLI) | payer MEDICARE, BC, SELFPAY ==
--- NOTE | 2020-05-01 12:45 | RAD_ITS ---
HISTORY: CHRONIC DIARRHEA EXAMINATION/TECHNIQUE: XR Abdomen W/ Decub and/or Erect Views: 4 images COMPARISON: Lumbar spine images from August 21, 2015 demonstrate much of the abdomen. CT scan of the abdomen and pelvis from December 10, 2012 is also available FINDINGS: LINES AND TUBES: None. BOWEL GAS PATTERN: Non-obstructive. No bowel or stomach distention. FREE AIR: No free air is perceived ORGANOMEGALY: Not seen. CALCIFICATIONS: No abnormal calcifications observed. LOWER CHEST: Interstitial lung disease remains BONES AND SOFT TISSUES: Left sided prosthetic disc spacer at the L5-S1 level. Right total hip prosthesis are new since the previous studies. The pessary ring seen on the CT scan is not identified. Left hip arthritis. Left gluteal calcified granulomas. Pelvic phleboliths. RAD/Abd Inc Decub and/or Erect IMPRESSION: Non-obstructive bowel gas pattern. at 0058 Reported and signed by: Alejandro Alexis MD Electronically Signed: Alejandro Alexis MD at 0:57 EST Tel , Service support ,
== END ==
LOC: LABSPEC 12:21 → RAD 12:38
PROVIDERS: PCP Family Medicine Geriatric Medicine; Referring Provider Family Medicine Geriatric Medicine; Visit Provider Family Medicine Geriatric Medicine
DX: N39.0 Urinary tract infection, site not specified (principal)
CPT/HCPCS: 74019; 87086; 87088

== ENCOUNTER 2020-05-28 21:56 | Emergency (ER) | payer MEDICARE, BC, SELFPAY ==
[2020-05-28 21:57] VITALS: BP 131/83; PULSE 76; RESP 18; TEMP 36.3; O2SAT 96; BMI 18.9
--- NOTE | 2020-05-28 22:25 | ED.DCSUM_ITS ---
- ER Visit Summary Date of Service: 05/28/20 Chief Complaint: Fall History of Present Illness: The patient is a 80 F who presents after a fall that occurred tonight. Patient states she was walking with her walker when she fell. Patient denies any head injury or loss of consciousness. Patient states her p ain is worse over her left chest wall. Patient states it is worse with movement and deep breathing. Patient describes the pain as stabbing. Patient also admits to some mild pain in her left knee. Patient states she has some skin tears over the anterior aspect of her left knee. Patient denies any pain with movement of her lower extremities. Patient states her last tetanus was approximately 7 years ago. Physical Examination: Vital signs are stable. Patient is afebrile. Patient is in no acute distress. Heart was regular rate and rhythm. Lungs are clear and equal bilaterally. There is good respiratory effort. There is left anterior chest wall tenderness. There is no bony crepitance or step-off. Abdomen is soft. Bowel sounds are normal. There is no tenderness. There is no rebound or guarding noted. Cranial nerves II through XII are intact. There are no focal motor or sensory deficits noted. Skin was warm and dry. There are superficial skin tears over the anterior aspect of the left knee. There is no bleeding noted. There is good range of motion of the left knee. There is no effusion. Test Results: X-rays of the left ribs were obtained. There are 5 views. On my interpretation, there is no acute fracture. There is no pneumothorax. There is no cardiomegaly. There is no acute cardiopulmonary process. Radiologist also interpreted the x-rays and agrees. Emergency Department Course and Treatment: Patient was given a dose of [place] here. Patient was instructed to use ice to the area. Bacitracin dressings were applied to the skin tears over the left knee. Patient was instructed to take 10-15 deep breaths every hour while awake to prevent atelectasis and pneumonia. Patient was instructed to follow-up with her primary care physician in 5 to 7 days. Patient and family understood and were agreeable with the plan. All questions were answered. Disposition: Discharge home Impression: 1. Chest wall contusion 2. Skin tears to left knee This note was generated with [employer] dictation software. It may contain incorrect words, spelling, and punctuation that were not noted in review of the chart prior to signing ED Disposition - Plan for ED Patient: Disposition: Home or Assisted Living Diagnosis: Chest wall contusion, Skin tear Instructions: ED Chest Wall Contusion Referrals: Eber Corcoran Chi, MD [Primary Care Provider] - 5-7 Days
--- NOTE | 2020-05-28 22:30 | RAD_ITS ---
HISTORY: Pain along lateral ribs after fall. PA chest and 4 views of the left ribs. Comparison studies chest x-ray from February 19, 2018. A CT scan of the thoracic spine is also available from July 03, 2019. Findings: The wedge compression fractures of the T6 vertebral body is not well demonstrated. Calcific plaque within the aortic arch persists. The heart is not enlarged. No pneumothorax. No pulmonary contusion. No displaced left rib fracture. There appears to be an old healed left 12th rib fracture. This appears to be new since June 2019. RAD/Ribs Uni Min 3V w/PA Chest IMPRESSION: No acute left rib fracture perceived. Healing left posterior 12th rib fracture. at 5701 Reported and signed by: Alejandro Alexis MD Electronically Signed: Alejandro Alexis MD at 22:47 EST Tel , Service support ,
[2020-05-28 23:07] VITALS: BP 126/80; PULSE 68; RESP 18; O2SAT 95
[2020-05-28] MEDS: HYDROcodone Bitartrate/Apap 5/325 Tablet PO (23:43)
== END 2020-05-28 23:53 | disposition home or self-care (01) ==
PROVIDERS: Emergency Provider Emergency Medicine; PCP Family Medicine Geriatric Medicine
DX: S20.219A Contusion of unspecified front wall of thorax, initial encounter (principal); S81.012A Laceration without foreign body, left knee, initial encounter; W18.30XA Fall on same level, unspecified, initial encounter; Y93.01 Activity, walking, marching and hiking; Y92.89 Other specified places as the place of occurrence of the external cause; Y99.8 Other external cause status
CPT/HCPCS: 71101; 99283

== ENCOUNTER → 2020-07-08 14:34 | Outpatient (CLI) | payer MEDICARE, BC, SELFPAY ==
[2020-07-08 17:07] LABS: Absolute Lymphocyte Count 1.83 X10^3/uL (0.83-4.51); Absolute Neutrophil Count 6.6 X10^3/uL (2.0-7.7); Basophil# 0.08 X10^3/uL; Basophil% 0.9 % (0-1); Eosinophil# 0.11 X10^3/uL; Eosinophils% 1.2 % (0-5); Hematocrit 42.4 % (37-47); Hemoglobin 13.4 g/dL (12.0-15.0); Lymphocyte # 1.83 X10^3/ul (4.0); Lymphocyte % 19.7 % (19-41); Mean Corp Hgb Conc 31.6 g/dL (32-36); Mean Corpuscular Hgb 29.1 pg (27.0-32.0); Mean Platelet Vol. 9.8 fl (6.2-12.0); Monocyte# 0.66 X10^3/uL; Monocyte% 7.1 % (0-10); NRBC Flagged by Analyzer 0 % (0-5); Neutrophil # 6.57 X10^3/uL (2.7-7.7); Neutrophil % 70.8 % (47-70); Platelet Count 451 K/mm3 (150-450); RBC Distribution Width CV 13.6 % (11.6-14.6); RBC Distribution Width SD 46.1 fl (35.1-43.9); Red Blood Count 4.61 M/mm3 (4.2-5.4); White Blood Count 9.3 K/mm3 (4.4-11.0)
[2020-07-08 17:24] LABS: Vitamin D,25 Hydroxy 23.6 ng/mL
[2020-07-08 18:55] LABS: ALB/GLOB Ratio 0.9 RATIO (0.9-2.4); AST(SGOT) 19 U/L (15-37); Alanine Aminotransfer ALT/SGPT 39 U/L (13-56); Albumin, Serum 3.4 g/dL (3.2-5.0); Alkaline Phosphatase 86 U/L (45-117); Anion Gap 6 (5-15); BUN 16 mg/dL (7-18); BUN/Creat Ratio 21.3 RATIO (10-20); Calcium,Total 8.8 mg/dL (8.5-10.1); Chloride 102 mmol/L (98-107); Creatinine, Serum 0.75 mg/dL (0.55-1.02); EST Glomerular Filtration Rate 79 mL/min (>60); Est Glom Filt Rate - Afr Amer 95 mL/min (>60); Globulin 3.7 g/dL (2.2-4.2); Glucose 118 mg/dL (74-106); Protein, Total 7.1 g/dL (6.4-8.2); Sodium Level 137 mmol/L (136-145); Thyroid Stim Hormone (TSH) 2.57 uIU/mL (0.358-3.74)
== END ==
PROVIDERS: PCP Family Medicine Geriatric Medicine; Visit Provider Family Medicine Geriatric Medicine
DX: E55.9 Vitamin D deficiency, unspecified (principal); I10 Essential (primary) hypertension
CPT/HCPCS: 36415; 80053; 82306; 84443; 85025

== ENCOUNTER → 2020-10-14 13:33 | Outpatient (CLI) | payer MEDICARE, BC, SELFPAY ==
[2020-10-14 16:45] LABS: Absolute Neutrophil Count 6.1 X10^3/uL (2.0-7.7); Basophil# 0.05 X10^3/uL; Basophil% 0.6 % (0-1); Eosinophil# 0.09 X10^3/uL; Hematocrit 46.5 % (37-47); Hemoglobin 14.7 g/dL (12.0-15.0); Lymphocyte % 23.2 % (19-41); Mean Corp Hgb Conc 31.6 g/dL (32-36); Mean Corpuscular Hgb 28.6 pg (27.0-32.0); Mean Corpuscular Volume 90.5 fL (81-99); Mean Platelet Vol. 10.6 fl (6.2-12.0); Monocyte# 0.73 X10^3/uL; Monocyte% 8.1 % (0-10); NRBC Flagged by Analyzer 0 % (0-5); Neutrophil # 6.05 X10^3/uL (2.7-7.7); Neutrophil % 66.9 % (47-70); Platelet Count 326 K/mm3 (150-450); RBC Distribution Width CV 13.1 % (11.6-14.6); Red Blood Count 5.14 M/mm3 (4.2-5.4)
[2020-10-14 17:10] LABS: AST(SGOT) 24 U/L (15-37); Alanine Aminotransfer ALT/SGPT 35 U/L (13-56); Alkaline Phosphatase 79 U/L (45-117); Anion Gap 7 (5-15); BUN 18 mg/dL (7-18); BUN/Creat Ratio 21.5 RATIO (10-20); Calcium,Total 9.2 mg/dL (8.5-10.1); Chloride 105 mmol/L (98-107); Creatinine, Serum 0.84 mg/dL (0.55-1.02); EST Glomerular Filtration Rate 70 mL/min (>60); Est Glom Filt Rate - Afr Amer 84 mL/min (>60); Globulin 3.9 g/dL (2.2-4.2); Glucose 100 mg/dL (74-106); Potassium 4.1 mmol/L (3.5-5.1); Protein, Total 7.9 g/dL (6.4-8.2); Sodium Level 140 mmol/L (136-145); Thyroid Stim Hormone (TSH) 2.62 uIU/mL (0.358-3.74)
[2020-10-15 08:47] LABS: Vitamin D,25 Hydroxy 25.3 ng/mL
== END ==
PROVIDERS: PCP Family Medicine Geriatric Medicine; Visit Provider Family Medicine Geriatric Medicine
DX: E55.9 Vitamin D deficiency, unspecified (principal); I10 Essential (primary) hypertension
CPT/HCPCS: 36415; 80053; 82306; 84443; 85025

== ENCOUNTER → 2021-01-14 15:44 | Outpatient (CLI) | payer MEDICARE, BC, SELFPAY ==
[2021-01-14 16:08] LABS: Absolute Neutrophil Count 5.4 X10^3/uL (2.0-7.7); Basophil# 0.04 X10^3/uL; Basophil% 0.4 % (0-1); Eosinophil# 0.14 X10^3/uL; Eosinophils% 1.5 % (0-5); Hematocrit 44.7 % (37-47); Hemoglobin 14.5 g/dL (12.0-15.0); Lymphocyte % 29.7 % (19-41); Mean Corp Hgb Conc 32.4 g/dL (32-36); Mean Corpuscular Hgb 29.5 pg (27.0-32.0); Mean Corpuscular Volume 90.9 fL (81-99); Mean Platelet Vol. 9.9 fl (6.2-12.0); Monocyte# 0.79 X10^3/uL; Monocyte% 8.7 % (0-10); NRBC Flagged by Analyzer 0 % (0-5); Neutrophil # 5.39 X10^3/uL (2.7-7.7); Neutrophil % 59.4 % (47-70); Platelet Count 299 K/mm3 (150-450); RBC Distribution Width CV 13.2 % (11.6-14.6); RBC Distribution Width SD 44.4 fl (35.1-43.9); Red Blood Count 4.92 M/mm3 (4.2-5.4); White Blood Count 9.1 K/mm3 (4.4-11.0)
[2021-01-14 16:44] LABS: Vitamin D,25 Hydroxy 24.2 ng/mL
[2021-01-14 16:50] LABS: AST(SGOT) 25 U/L (15-37); Alanine Aminotransfer ALT/SGPT 30 U/L (13-56); Albumin, Serum 4.1 g/dL (3.2-5.0); Alkaline Phosphatase 74 U/L (45-117); Anion Gap 4 (5-15); BUN 19 mg/dL (7-18); BUN/Creat Ratio 28.7 RATIO (10-20); Calcium,Total 9.4 mg/dL (8.5-10.1); Chloride 105 mmol/L (98-107); Creatinine, Serum 0.66 mg/dL (0.55-1.02); EST Glomerular Filtration Rate 91 mL/min (>60); Est Glom Filt Rate - Afr Amer 110 mL/min (>60); Glucose 101 mg/dL (74-106); Potassium 4.2 mmol/L (3.5-5.1); Protein, Total 8.1 g/dL (6.4-8.2); Sodium Level 138 mmol/L (136-145); Thyroid Stim Hormone (TSH) 3.18 uIU/mL (0.358-3.74)
== END ==
PROVIDERS: PCP Family Medicine Geriatric Medicine; Visit Provider Family Medicine Geriatric Medicine
DX: E55.9 Vitamin D deficiency, unspecified (principal); I10 Essential (primary) hypertension
CPT/HCPCS: 36415; 80053; 82306; 84443; 85025

== ENCOUNTER → 2021-12-09 | Outpatient (CLI) | payer MEDICARE, SELFPAY ==
[2021-12-09 12:37] LABS: Absolute Lymphocyte Count 2.25 X10^3/uL (0.83-4.51); Absolute Neutrophil Count 6.7 X10^3/uL (2.0-7.7); Basophil# 0.04 X10^3/uL; Basophil% 0.4 % (0-1); Eosinophil# 0.23 X10^3/uL; Eosinophils% 2.3 % (0-5); Hematocrit 43.5 % (37-47); Hemoglobin 14.1 g/dL (12.0-15.0); Lymphocyte # 2.25 X10^3/ul (0.83-4.51); Lymphocyte % 22.4 % (19-41); Mean Corp Hgb Conc 32.4 g/dL (32-36); Mean Corpuscular Hgb 29.7 pg (27.0-32.0); Mean Corpuscular Volume 91.6 fL (81-99); Mean Platelet Vol. 10.5 fl (6.2-12.0); Monocyte# 0.84 X10^3/uL; Monocyte% 8.4 % (0-10); NRBC Flagged by Analyzer 0 % (0-5); Neutrophil # 6.65 X10^3/uL (2.7-7.7); Neutrophil % 66.3 % (47-70); Platelet Count 291 K/mm3 (150-450); RBC Distribution Width CV 13.1 % (11.6-14.6); RBC Distribution Width SD 43.8 fl (35.1-43.9); Red Blood Count 4.75 M/mm3 (4.2-5.4)
--- NOTE | 2021-12-09 12:47 | RAD_ITS ---
EXAM: XR LEFT FOREARM, 2 VIEWS CLINICAL INDICATION: PAIN TECHNIQUE: Frontal and lateral views of the left forearm. This report was created using [employer] report generation technology. COMPARISON: None. FINDINGS: BONES/JOINTS: Bony structures are diffusely osteopenic. No acute fracture or subluxation. Narrowing of the joints of the wrist. SOFT TISSUES: Normal. RAD/Forearm 2 Views IMPRESSION: No acute fracture or subluxation. Arthritic changes of the wrist. Osteopenia. Electronically Signed: Ki Argueta MD at 16:09 EDT ,
--- NOTE | 2021-12-09 12:47 | RAD_ITS ---
EXAM: XR LEFT ELBOW COMPLETE, 3 OR MORE VIEWS CLINICAL INDICATION: PAIN TECHNIQUE: Frontal, lateral and oblique views of the left elbow. This report was created using [employer] report generation technology. COMPARISON: None. FINDINGS: BONES/JOINTS: No acute fracture, subluxation or joint effusion. SOFT TISSUES: Normal. No soft tissue swelling or gas. No radiopaque foreign body. RAD/Elbow min 3 Views IMPRESSION: Intact left elbow. Electronically Signed: Ki Argueta MD at 16:09 EDT ,
[2021-12-09 12:50] LABS: Vitamin D,25 Hydroxy 29.1 ng/mL
--- NOTE | 2021-12-09 13:00 | RAD_ITS ---
EXAM: XR LEFT WRIST COMPLETE, 3 OR MORE VIEWS CLINICAL INDICATION: PAIN TECHNIQUE: Frontal, lateral and oblique views of the left wrist. This report was created using [employer] report generation technology. COMPARISON: None. FINDINGS: BONES/JOINTS: Bony structures appear osteoporotic. No acute fracture or subluxation. Narrowing of the joints of the wrist. No periarticular erosion or demineralization to suggest inflammatory arthritis. SOFT TISSUES: Normal. No soft tissue swelling or gas. No radiopaque foreign body. RAD/Wrist min 3 Views IMPRESSION: Osteoporosis. DJD. Electronically Signed: Ki Argueta MD at 16:11 EDT ,
[2021-12-09 13:10] LABS: AST(SGOT) 20 U/L (15-37); Alanine Aminotransfer ALT/SGPT 25 U/L (13-56); Albumin, Serum 3.7 g/dL (3.2-5.0); Alkaline Phosphatase 73 U/L (45-117); Anion Gap 4 (5-15); BUN 21 mg/dL (7-18); Calcium,Total 9.4 mg/dL (8.5-10.1); Chloride 108 mmol/L (98-107); Creatinine, Serum 0.62 mg/dL (0.55-1.02); EST Glomerular Filtration Rate 99 mL/min (>60); Est Glom Filt Rate - Afr Amer 119 mL/min (>60); Globulin 3.7 g/dL (2.2-4.2); Glucose 99 mg/dL (74-106); Potassium 3.9 mmol/L (3.5-5.1); Protein, Total 7.4 g/dL (6.4-8.2); Sodium Level 142 mmol/L (136-145); Thyroid Stim Hormone (TSH) 1.91 uIU/mL (0.358-3.74)
== END | disposition home or self-care (01) ==
PROVIDERS: PCP Family Medicine Geriatric Medicine; Referring Provider Family Medicine Geriatric Medicine; Visit Provider Family Medicine Geriatric Medicine
DX: I10 Essential (primary) hypertension (principal); E55.9 Vitamin D deficiency, unspecified; M79.602 Pain in left arm
CPT/HCPCS: 36415; 73080; 73090; 73110; 80053; 82306; 84443; 85025

== ENCOUNTER 2022-01-29 10:39 | Emergency (ER) | payer MEDICARE, SELFPAY ==
[2022-01-29 10:42] VITALS: BP 126/94; PULSE 85; RESP 18; TEMP 36.8; O2SAT 95; BMI 17.7
--- NOTE | 2022-01-29 11:11 | CT_ITS ---
STUDY: CT CERVICAL SPINE WITHOUT CONTRAST REASON FOR EXAM: Female, 81 years old. Neck trauma RADIATION DOSAGE (If Supplied By Facility): CTDIvol = ( 11.88 ) mGy, DLP = ( 270.75 ) mGycm TECHNIQUE: High resolution transaxial imaging was performed without contrast material. Sagittal and coronal images were reconstructed. Individualized dose optimization techniques were used for this CT. COMPARISON: CT of the cervical spine dated July 03, 2019 FINDINGS: There are chronic appearing moderate to significant compression deformities of the T4, T5, T6 vertebral bodies. A mild chronic appearing compression deformity of the T3 vertebral body is also present. No visualized acute fracture lines or cortical breaks are seen in the remaining bony structures. Moderate multilevel degenerative changes are present. Normal craniovertebral junction. Normal anterior atlantoaxial articulation. Normal odontoid process. Normal cervical lordosis. Normal vertebral bodies and posterior osseous elements. Mild central canal stenosis is present at several levels. Multilevel foraminal stenosis with facet and uncovertebral degenerative changes and hypertrophy also noted. Normal visualized soft tissue structures. Diffuse interstitial fibrotic opacities are seen in the bilateral upper lobes of the lungs. CT/Spine Cervical without Contras IMPRESSION: Multilevel degenerative changes, as described above. Electronically Signed: Yury Velez MD at 12:03 EDT Reading Location ID and State: [facility] / [place] , Service support ,
--- NOTE | 2022-01-29 11:11 | RAD_ITS ---
STUDY: X-RAY - LEFT TIBIA AND FIBULA REASON FOR EXAM: Female, 81 years old. Trauma, pain EMS brings pt in after she had an assisted fall in the shower off of the shower chair. Family stated she ''bumped her head T landed on her butt''. LT leg skin tear as well. C-collar placed by squad. TECHNIQUE: 2 view(s) of the tibia and fibula were obtained. COMPARISON: None. FINDINGS: There is demineralization of the tibia. There is demineralization of the fibula. A small triangle shaped loose body is present in the knee joint which is either due to degenerative disease or old trauma. There are no visualized acute fractures on the current study. Atherosclerotic calcifications are seen in the calf. The soft tissue structures are unremarkable. RAD/Tibia & Fibula 2 Views IMPRESSION: No visualized acute fracture Electronically Signed: Yury Velez MD at 11:59 EDT ,
--- NOTE | 2022-01-29 11:11 | RAD_ITS ---
STUDY: X-RAY - PELVIS REASON FOR EXAM: Female, 81 years old. fall, pain FALL,EMS brings pt in after she had an assisted fall in the shower off of the shower chair. Family stated she ''bumped her head T landed on her butt''. LT leg skin tear as well. C-collar placed by squad. TECHNIQUE: Two views of the pelvis were obtained. COMPARISON: None. FINDINGS: No visualized acute fracture or displaced bony fragment. Right hip prosthesis noted. There is a non-specific bowel gas pattern. Normal visualized soft tissue structures. Normal bilateral iliac wings, sacroiliac joints and visualized sacrum. Normal visualized bilateral superior and inferior pubic rami. Normal pubic symphysis. Normal ischial tuberosities. Normal visualized left femoral head. Normal left acetabulum. There is mild articular joint space narrowing of the left hip. RAD/Pelvis 1 or 2 Views IMPRESSION: No acute process Electronically Signed: Yury Velez MD at 12:00 EDT ,
--- NOTE | 2022-01-29 11:13 | EDS_ITS ---
HPI HPI - Fall History of Present Illness Chief Complaint: Fall Narrative Narrative: History and physical is limited secondary to patient's age. Majority of history does come from patient's daughter and granddaughter. They received a call that approximately an hour ago patient was placed in her shower chair by home health. She fell out of her chair onto her buttocks. She did not strike her head or pass out. She has not take blood thinners. She is nonambulatory otherwise. She sustained a skin tear to her left anterior tibial area. They are unsure of her last tetanus immunization. She complained of neck pain so she was placed in a cervical collar, but she has chronic neck pain at baseline. She presents mainly because of the skin tear in the fall with neck pain. She denies having any buttocks pain. Daughter is concerned because she did have hip arthroplasty. PFSH PFSH Home Medications Ibandronate Sodium [Boniva] 150 mg PO Q30D 03/02/17 [History Last Taken 04/07/17] levothyroxine 75 mcg tablet 75 mcg PO DAILY THYROID 03/02/17 [History Last Taken 04/11/17] sertraline 100 mg tablet (Zoloft) 100 mg PO DAILY DEPRESSION 03/02/17 [History Last Taken 04/11/17] losartan 50 mg tablet 50 mg PO DAILY #30 tabs 04/12/17 [Rx Last Taken Unknown] Tarazodone 100 mg PO QHS 05/28/20 [History Last Taken Unknown] donepezil 5 mg tablet 5 mg PO QHS 05/28/20 [History Last Taken Unknown] famotidine 40 mg tablet 40 mg PO DAILY 05/28/20 [History Last Taken Unknown] levocetirizine 5 mg tablet 5 mg PO DAILY 05/28/20 [History Last Taken Unknown] potassium chloride 10 mEq capsule,extended release 10 meq PO DAILY 05/28/20 [History Last Taken Unknown] Allergy/AdvReac Type Severity Reaction Status Date / Time Twhodmd-DRO-IxR Reductase Allergy Hives Verified 01/29/22 10:41 Inhibitor [Udjoraj-Tws-Uwl Reductase Inhibitor] meperidine HCl [From Demerol] AdvReac Nausea/Vom/ Verified 01/29/22 10:41 Diarrhea Social History Smoking Status: Unknown if ever smoked ROS ROS ED ROS Narrative Constitutional: No fever, no chills. HEENT: No sore throat. Positive neck pain. No loss of vision. No rhinorrhea. Cardiovascular: No chest pain. No palpitations. No pedal edema. Respiratory: No cough, no shortness of breath. Abdominal: No abdominal pain. No nausea. No vomiting. Genitourinary: No dysuria. No hematuria. Musculoskeletal: No myalgias. No arthralgias. Positive leg pain over area of skin tear. Neurologic: No headaches. No dizziness. No lightheadedness. Skin: No rash. No change in color. Positive large skin tear left anterior tibial surface. Psychiatric: No depression. No anxiety. EXAM Physical Exam Narrative Exam Narrative: Afebrile. Vital signs noted. HEENT: Normocephalic. Atraumatic. PERRL, EOMI. Neck soft and supple. No point tenderness or step off. In cervical collar. Cardiovascular: Regular rate and rhythm. No murmurs, rubs, or gallops appreciated. Respiratory: No tachypnea. Lungs clear to auscultation bilaterally. Gastrointestinal: Abdomen soft, nontender, with normoactive bowel sounds. No rebound or guarding. Neurological: Awake. Alert. Nonfocal, nonlateralizing. Skin: No rash. Normal color. No pallor. Large skin tear/skin avulsion left anterior tibial surface closer to midshaft area. No active bleeding. Musculoskeletal: No pedal edema. Full range of motion extremities. Pelvis stable. Palpable dorsalis pedis pulse on left. Const Vital Signs: 01/29/22 10:42 01/29/22 11:31 Temperature 98.2 F Temperature Source Axillary Pulse Rate 85 Respiratory Rate 18 Respiratory Effort Normal Non-Labored Respiratory Depth Normal Respiratory Pattern Normal Blood Pressure 126/94 H Blood Pressure Mean 104 Pulse Ox 95 Oxygen Delivery Method Room Air Room Air MDM MDM MDM Narrative Medical decision making narrative: Tetanus immunization will be updated. Additionally, x-rays were obtained of the left tib-fib and of the pelvis. I will obtain CT imaging of her neck given that she was complaining of pain and placed in a c-collar. Skin avulsion was cleansed and dressed by RN. CT of the cervical spine shows multilevel degenerative changes but no evidence of acute fracture. Pelvis x-ray read by myself shows no acute process, no hip dislocation or pubic ramus fracture. Tibia and fibula x-ray also interpreted by myself shows no evidence of fracture. At this point in time, I feel she be discharged safely home with follow-up. She was clinically removed from the c-collar. Her family would like to take her home via private vehicle. Disposition is discharged home in stable condition. Radiography Diagnostic Testing: Clinical Impression(s) from Imaging Studies Cervical Spine CT 01/29/22 11:11 IMPRESSION: Multilevel degenerative changes, as described above. Electronically Signed: Yury Velez MD at 12:03 EDT Reading Location ID and State: [facility] / [place] , Service support , Pelvis X-Ray 01/29/22 11:11 IMPRESSION: No acute process Electronically Signed: Yury Velez MD at 12:00 EDT Reading Location ID and State: [address] [place] [address] , Service support , Tibia/Fibula X-Ray 01/29/22 11:11 IMPRESSION: No visualized acute fracture Electronically Signed: Yury Velez MD at 11:59 EDT Reading Location ID and State: [facility] / [place] , Service support , Discharge Plan Triage Chief Complaint: Fall ED Provider: Enrique Nix Dx/Rx/DC Orders Clinical Impression: Fall from chair, Skin tear, Neck pain, Ejraioevhn-bkyqkfqup-jhkxhra (DPT) vaccination administered at current visit Instructions: ED Mechanical Fall, ED Neck Pain, ED Skin Avulsion Prescriptions: No Action sertraline [Zoloft] 100 MG tablet 100 mg PO DAILY levothyroxine 75 MCG tablet 75 mcg PO DAILY Ibandronate Sodium [Boniva] 150 MG tablet 150 mg PO Q30D losartan 50 MG tablet 50 mg PO DAILY Qty: 30 0RF potassium chloride 10 MEQ capsule, extended release 10 meq PO DAILY donepezil 5 MG tablet 5 mg PO QHS famotidine 40 MG tablet 40 mg PO DAILY levocetirizine 5 MG tablet 5 mg PO DAILY Tarazodone 100 mg PO QHS Primary Care Provider: Eber Corcoran Chi Referrals: Eber Corcoran Chi, MD [Primary Care Provider] - 3-5 Days if not improving Disposition Disposition: Home, Self Care
[2022-01-29 13:00] VITALS: BP 130/85; PULSE 80; RESP 16; O2SAT 97
== END 2022-01-29 13:51 | disposition home or self-care (01) ==
PROVIDERS: Emergency Provider Emergency Medicine; PCP Family Medicine Geriatric Medicine; Visit Provider Emergency Medicine
DX: S81.802A Unspecified open wound, left lower leg, initial encounter (principal); M54.2 Cervicalgia; G89.29 Other chronic pain; Z96.641 Presence of right artificial hip joint; W07.XXXA Fall from chair, initial encounter; Z23 Encounter for immunization
CPT/HCPCS: 72125; 72170; 73590; 90715; 99284

== ENCOUNTER → 2022-06-09 | Outpatient (CLI) | payer MEDICARE, SELFPAY ==
[2022-06-09 12:32] LABS: Absolute Lymphocyte Count 2.04 X10^3/uL (0.83-4.51); Absolute Neutrophil Count 5.2 X10^3/uL (2.0-7.7); Basophil# 0.06 X10^3/uL; Basophil% 0.7 % (0-1); Eosinophil# 0.16 X10^3/uL; Hematocrit 44.5 % (37-47); Hemoglobin 14.2 g/dL (12.0-15.0); Lymphocyte # 2.04 X10^3/ul (0.83-4.51); Lymphocyte % 25.1 % (19-41); Mean Corp Hgb Conc 31.9 g/dL (32-36); Mean Corpuscular Hgb 29.2 pg (27.0-32.0); Mean Corpuscular Volume 91.4 fL (81-99); Mean Platelet Vol. 10.7 fl (6.2-12.0); Monocyte# 0.66 X10^3/uL; Monocyte% 8.1 % (0-10); NRBC Flagged by Analyzer 0 % (0-5); Neutrophil # 5.19 X10^3/uL (2.7-7.7); Neutrophil % 63.7 % (47-70); Platelet Count 302 K/mm3 (150-450); RBC Distribution Width CV 13.5 % (11.6-14.6); RBC Distribution Width SD 45.7 fl (35.1-43.9); Red Blood Count 4.87 M/mm3 (4.2-5.4); White Blood Count 8.1 K/mm3 (4.4-11.0)
[2022-06-09 12:56] LABS: Vitamin D,25 Hydroxy 25.3 ng/mL
[2022-06-09 13:02] LABS: ALB/GLOB Ratio 0.8 RATIO (0.9-2.4); AST(SGOT) 19 U/L (15-37); Alanine Aminotransfer ALT/SGPT 23 U/L (13-56); Albumin, Serum 3.4 g/dL (3.2-5.0); Alkaline Phosphatase 75 U/L (45-117); Anion Gap 7 (5-15); BUN 19 mg/dL (7-18); BUN/Creat Ratio 29.6 RATIO (10-20); Calcium,Total 9.2 mg/dL (8.5-10.1); Chloride 105 mmol/L (98-107); Cholesterol 196 mg/dL (200); Creatinine, Serum 0.64 mg/dL (0.55-1.02); EST Glomerular Filtration Rate 94 mL/min (>60); Est Glom Filt Rate - Afr Amer 114 mL/min (>60); Globulin 4.1 g/dL (2.2-4.2); Glucose 85 mg/dL (74-106); High Density Lipoprotein 93 mg/dL; Potassium 3.9 mmol/L (3.5-5.1); Protein, Total 7.5 g/dL (6.4-8.2); Sodium Level 141 mmol/L (136-145); Thyroid Stim Hormone (TSH) 1.94 uIU/mL (0.358-3.74); Triglycerides 87 mg/dL; Very Low Density Lipoprotein 17 mg/dL (5-40)
== END | disposition home or self-care (01) ==
LOC: POLAB3 11:38
PROVIDERS: PCP Family Medicine Geriatric Medicine; Visit Provider Family Medicine Geriatric Medicine
DX: I10 Essential (primary) hypertension (principal); E78.5 Hyperlipidemia, unspecified; E55.9 Vitamin D deficiency, unspecified
CPT/HCPCS: 36415; 80053; 80061; 82306; 84443; 85025

== ENCOUNTER → 2022-11-03 | Outpatient (CLI) | payer MEDICARE, SELFPAY ==
--- NOTE | 2022-11-03 15:39 | RAD_ITS ---
INDICATION: Left arm pain, unable to move joints EXAMINATION/TECHNIQUE: X-RAY - LEFT XR Humerus Min 2 Views COMPARISON: Left elbow radiographs from 12/09/2021 FINDINGS: SOFT TISSUES: No significant soft tissue swelling. BONES/JOINTS: No acute fracture or subluxation. Adequate alignment of osseous structures. Preservation of the joint space(s). No suspicious osseous lesion observed. RAD/Humerus min 2 Views IMPRESSION: Negative left humerus Electronically Signed: Sunday Storey MD at 23:22 EDT ,
--- NOTE | 2022-11-03 15:39 | RAD_ITS ---
INDICATION: Low back pain EXAMINATION/TECHNIQUE: X-RAY - XR Spine Lumbar 2 or 3 Views: AP and lateral views COMPARISON: Lumbar spine radiographs from 08/21/2015 FINDINGS: VERTEBRAE: Chronic appearing superior endplate compression deformity at L4 resulting in approximately 25% loss of vertebral body height. No acute fracture demonstrated. No spondylolisthesis. Preservation of the normal lumbar lordosis. Multilevel degenerative facet arthropathy and mild endplate spurring. DISCS: Mild disc space narrowing at L3-4. INCLUDED ABDOMEN: Included bowel gas pattern is non-obstructive. Vascular calcifications noted. Sutures within right lower quadrant. Partially imaged right hip hemiarthroplasty hardware. RAD/Lumbar Spine 2 or 3 Views IMPRESSION: Lumbar spondylosis with chronic appearing L4 vertebral endplate compression deformity. Electronically Signed: Sunday Storey MD at 23:25 EDT ,
--- NOTE | 2022-11-03 15:50 | RAD_ITS ---
INDICATION: Left arm pain, unable to move joints of left arm EXAMINATION/TECHNIQUE: X-RAY - LEFT XR Forearm 2 Views COMPARISON: Left forearm radiographs from 12/09/2021 FINDINGS: SOFT TISSUES: No significant soft tissue swelling. No radiopaque foreign body detected. BONES/JOINTS: No acute fracture or subluxation. Adequate alignment. Chronic radiocarpal degenerative joint space narrowing. Osteopenia again noted. No suspicious osseous lesion observed. RAD/Forearm 2 Views IMPRESSION: Osteopenia with no acute osseous abnormality. Stable radiocarpal osteoarthrosis. Electronically Signed: Sunday Storey MD at 23:21 EDT ,
[2022-11-03 17:52] LABS: Absolute Lymphocyte Count 2.05 X10^3/uL (0.83-4.51); Absolute Neutrophil Count 7.9 X10^3/uL (2.0-7.7); Basophil# 0.05 X10^3/uL; Basophil% 0.5 % (0-1); Eosinophils% 1.8 % (0-5); Hematocrit 48.4 % (37-47); Hemoglobin 14.9 g/dL (12.0-15.0); Lymphocyte # 2.05 X10^3/ul (0.83-4.51); Lymphocyte % 18.6 % (19-41); Mean Corp Hgb Conc 30.8 g/dL (32-36); Mean Corpuscular Hgb 28.7 pg (27.0-32.0); Mean Corpuscular Volume 93.1 fL (81-99); Mean Platelet Vol. 11.5 fl (6.2-12.0); Monocyte% 7.3 % (0-10); NRBC Flagged by Analyzer 0 % (0-5); Neutrophil # 7.86 X10^3/uL (2.7-7.7); Neutrophil % 71.4 % (47-70); Platelet Count 318 K/mm3 (150-450); RBC Distribution Width CV 13.5 % (11.6-14.6); RBC Distribution Width SD 45.6 fl (35.1-43.9)
[2022-11-03 18:22] LABS: ALB/GLOB Ratio 0.8 RATIO (0.9-2.4); AST(SGOT) 22 U/L (15-37); Alanine Aminotransfer ALT/SGPT 27 U/L (13-56); Albumin, Serum 3.6 g/dL (3.2-5.0); Alkaline Phosphatase 137 U/L (45-117); Anion Gap 7 (5-15); BUN 22 mg/dL (7-18); BUN/Creat Ratio 34.8 RATIO (10-20); Calcium,Total 9.6 mg/dL (8.5-10.1); Chloride 104 mmol/L (98-107); Creatinine, Serum 0.63 mg/dL (0.55-1.02); EST Glomerular Filtration Rate 96 mL/min (>60); Est Glom Filt Rate - Afr Amer 116 mL/min (>60); Globulin 4.4 g/dL (2.2-4.2); Glucose 112 mg/dL (74-106); Potassium 4.4 mmol/L (3.5-5.1); Sodium Level 139 mmol/L (136-145)
== END | disposition home or self-care (01) ==
PROVIDERS: PCP Family Medicine Geriatric Medicine; Referring Provider Family Medicine Geriatric Medicine; Visit Provider Family Medicine Geriatric Medicine
DX: R30.0 Dysuria (principal); M79.602 Pain in left arm
CPT/HCPCS: 36415; 72100; 73060; 73090; 80053; 85025; 87086; 87088; 87186

== ENCOUNTER → 2022-12-15 | Outpatient (CLI) | payer MEDICARE, SELFPAY ==
[2022-12-15 12:38] LABS: Absolute Lymphocyte Count 2.07 X10^3/uL (0.83-4.51); Absolute Neutrophil Count 3.3 X10^3/uL (2.0-7.7); Basophil# 0.04 X10^3/uL; Basophil% 0.7 % (0-1); Eosinophil# 0.16 X10^3/uL; Eosinophils% 2.6 % (0-5); Hematocrit 47.8 % (37-47); Lymphocyte # 2.07 X10^3/ul (0.83-4.51); Lymphocyte % 34.2 % (19-41); Mean Corp Hgb Conc 31.4 g/dL (32-36); Mean Corpuscular Hgb 28.7 pg (27.0-32.0); Mean Corpuscular Volume 91.4 fL (81-99); Mean Platelet Vol. 10.5 fl (6.2-12.0); Monocyte# 0.46 X10^3/uL; Monocyte% 7.6 % (0-10); NRBC Flagged by Analyzer 0 % (0-5); Neutrophil # 3.31 X10^3/uL (2.7-7.7); Neutrophil % 54.7 % (47-70); Platelet Count 255 K/mm3 (150-450); RBC Distribution Width CV 13.4 % (11.6-14.6); RBC Distribution Width SD 45.6 fl (35.1-43.9); Red Blood Count 5.23 M/mm3 (4.2-5.4); White Blood Count 6.1 K/mm3 (4.4-11.0)
[2022-12-15 12:55] LABS: Vitamin D,25 Hydroxy 21.5 ng/mL
[2022-12-15 13:13] LABS: ALB/GLOB Ratio 0.9 RATIO (0.9-2.4); AST(SGOT) 24 U/L (15-37); Alanine Aminotransfer ALT/SGPT 25 U/L (13-56); Albumin, Serum 3.3 g/dL (3.2-5.0); Alkaline Phosphatase 70 U/L (45-117); Anion Gap 8 (5-15); BUN 12 mg/dL (7-18); BUN/Creat Ratio 16.8 RATIO (10-20); Calcium,Total 9.1 mg/dL (8.5-10.1); Chloride 103 mmol/L (98-107); Cholesterol 211 mg/dL (200); Creatinine, Serum 0.72 mg/dL (0.55-1.02); EST Glomerular Filtration Rate 83 mL/min (>60); Est Glom Filt Rate - Afr Amer 100 mL/min (>60); Globulin 3.8 g/dL (2.2-4.2); Glucose 156 mg/dL (74-106); High Density Lipoprotein 97 mg/dL; Protein, Total 7.1 g/dL (6.4-8.2); Sodium Level 134 mmol/L (136-145); Thyroid Stim Hormone (TSH) 4.04 uIU/mL (0.358-3.74); Triglycerides 61 mg/dL; Very Low Density Lipoprotein 12 mg/dL (5-40)
== END | disposition home or self-care (01) ==
PROVIDERS: PCP Family Medicine Geriatric Medicine; Visit Provider Family Medicine Geriatric Medicine
DX: I10 Essential (primary) hypertension (principal); E55.9 Vitamin D deficiency, unspecified; E78.5 Hyperlipidemia, unspecified
CPT/HCPCS: 36415; 80053; 80061; 82306; 84443; 85025

== ENCOUNTER → 2022-12-29 | Outpatient (REF) | payer MEDICARE, SELFPAY ==
[2022-12-29 09:26] LABS: Absolute Lymphocyte Count 2.59 X10^3/uL (0.83-4.51); Basophil# 0.04 X10^3/uL; Basophil% 0.6 % (0-1); Eosinophil# 0.12 X10^3/uL; Eosinophils% 1.9 % (0-5); Hematocrit 43.4 % (37-47); Lymphocyte # 2.59 X10^3/ul (0.83-4.51); Lymphocyte % 40.9 % (19-41); Mean Corp Hgb Conc 32.3 g/dL (32-36); Mean Corpuscular Hgb 28.6 pg (27.0-32.0); Mean Corpuscular Volume 88.6 fL (81-99); Mean Platelet Vol. 10.3 fl (6.2-12.0); Monocyte# 0.56 X10^3/uL; Monocyte% 8.8 % (0-10); NRBC Flagged by Analyzer 0 % (0-5); Neutrophil # 3.01 X10^3/uL (2.7-7.7); Neutrophil % 47.5 % (47-70); Platelet Count 260 K/mm3 (150-450); RBC Distribution Width CV 13.7 % (11.6-14.6); RBC Distribution Width SD 44.7 fl (35.1-43.9); White Blood Count 6.3 K/mm3 (4.4-11.0)
[2022-12-29 09:54] LABS: AST(SGOT) 19 U/L (15-37); Alanine Aminotransfer ALT/SGPT 24 U/L (13-56); Albumin, Serum 3.4 g/dL (3.2-5.0); Alkaline Phosphatase 64 U/L (45-117); Anion Gap 7 (5-15); BUN 24 mg/dL (7-18); BUN/Creat Ratio 45.2 RATIO (10-20); Calcium,Total 9.1 mg/dL (8.5-10.1); Chloride 107 mmol/L (98-107); Creatinine, Serum 0.53 mg/dL (0.55-1.02); EST Glomerular Filtration Rate 117 mL/min (>60); Est Glom Filt Rate - Afr Amer 141 mL/min (>60); Globulin 3.5 g/dL (2.2-4.2); Glucose 89 mg/dL (74-106); Potassium 3.6 mmol/L (3.5-5.1); Protein, Total 6.9 g/dL (6.4-8.2); Sodium Level 142 mmol/L (136-145); Thyroid Stim Hormone (TSH) 3.55 uIU/mL (0.358-3.74)
== END ==
LOC: OLS.WHLEAS 05:00
PROVIDERS: PCP Family Medicine Geriatric Medicine; Visit Provider Internal Medicine
DX: R53.83 Other fatigue (principal); G31.83 Neurocognitive disorder with Lewy bodies; I10 Essential (primary) hypertension; E03.9 Hypothyroidism, unspecified; E78.5 Hyperlipidemia, unspecified
CPT/HCPCS: 36415; 80053; 84443; 85025

== ENCOUNTER → 2023-01-05 | Outpatient (REF) | payer MEDICARE, SELFPAY ==
[2023-01-05 08:38] LABS: Absolute Lymphocyte Count 3.06 X10^3/uL (0.83-4.51); Absolute Neutrophil Count 3.3 X10^3/uL (2.0-7.7); Basophil# 0.04 X10^3/uL; Basophil% 0.5 % (0-1); Eosinophil# 0.19 X10^3/uL; Eosinophils% 2.6 % (0-5); Hematocrit 47.6 % (37-47); Hemoglobin 14.7 g/dL (12.0-15.0); Lymphocyte # 3.06 X10^3/ul (0.83-4.51); Mean Corp Hgb Conc 30.9 g/dL (32-36); Mean Corpuscular Hgb 28.5 pg (27.0-32.0); Mean Corpuscular Volume 92.2 fL (81-99); Mean Platelet Vol. 10.9 fl (6.2-12.0); Monocyte# 0.69 X10^3/uL; Monocyte% 9.5 % (0-10); NRBC Flagged by Analyzer 0 % (0-5); Neutrophil % 45.3 % (47-70); Platelet Count 290 K/mm3 (150-450); RBC Distribution Width CV 13.7 % (11.6-14.6); RBC Distribution Width SD 46.7 fl (35.1-43.9); Red Blood Count 5.16 M/mm3 (4.2-5.4); White Blood Count 7.3 K/mm3 (4.4-11.0)
[2023-01-05 08:55] LABS: ALB/GLOB Ratio 0.9 RATIO (0.9-2.4); AST(SGOT) 18 U/L (15-37); Alanine Aminotransfer ALT/SGPT 26 U/L (13-56); Albumin, Serum 3.3 g/dL (3.2-5.0); Alkaline Phosphatase 62 U/L (45-117); Anion Gap 2 (5-15); BUN 31 mg/dL (7-18); Calcium,Total 9.4 mg/dL (8.5-10.1); Chloride 109 mmol/L (98-107); Creatinine, Serum 0.66 mg/dL (0.55-1.02); EST Glomerular Filtration Rate 91 mL/min (>60); Est Glom Filt Rate - Afr Amer 110 mL/min (>60); Globulin 3.7 g/dL (2.2-4.2); Glucose 92 mg/dL (74-106); Potassium 3.9 mmol/L (3.5-5.1); Sodium Level 145 mmol/L (136-145)
== END ==
LOC: OLS.WHLEAS 05:00
PROVIDERS: PCP Family Medicine Geriatric Medicine; Visit Provider Internal Medicine
DX: T50.901A Poisoning by unspecified drugs, medicaments and biological substances, accidental (unintentional), initial encounter (principal); G31.83 Neurocognitive disorder with Lewy bodies; I10 Essential (primary) hypertension; E78.5 Hyperlipidemia, unspecified; E03.9 Hypothyroidism, unspecified; E55.9 Vitamin D deficiency, unspecified
CPT/HCPCS: 36415; 80053; 85025

== ENCOUNTER → 2023-01-25 | Outpatient (REF) | payer MEDICARE, SELFPAY ==
[2023-01-25 09:52] LABS: Absolute Lymphocyte Count 2.62 X10^3/uL (0.83-4.51); Basophil# 0.05 X10^3/uL; Basophil% 0.7 % (0-1); Eosinophil# 0.16 X10^3/uL; Eosinophils% 2.1 % (0-5); Hematocrit 39.8 % (37-47); Hemoglobin 12.7 g/dL (12.0-15.0); Lymphocyte # 2.62 X10^3/ul (0.83-4.51); Lymphocyte % 34.9 % (19-41); Mean Corp Hgb Conc 31.9 g/dL (32-36); Mean Corpuscular Hgb 28.8 pg (27.0-32.0); Mean Corpuscular Volume 90.2 fL (81-99); Mean Platelet Vol. 10.7 fl (6.2-12.0); Monocyte# 0.63 X10^3/uL; Monocyte% 8.4 % (0-10); NRBC Flagged by Analyzer 0 % (0-5); Neutrophil # 4.02 X10^3/uL (2.7-7.7); Neutrophil % 53.6 % (47-70); Platelet Count 255 K/mm3 (150-450); RBC Distribution Width CV 14.1 % (11.6-14.6); Red Blood Count 4.41 M/mm3 (4.2-5.4); White Blood Count 7.5 K/mm3 (4.4-11.0)
[2023-01-25 10:07] LABS: Anion Gap 3 (5-15); BUN 16 mg/dL (7-18); BUN/Creat Ratio 36.3 RATIO (10-20); Calcium,Total 8.8 mg/dL (8.5-10.1); Chloride 105 mmol/L (98-107); Creatinine, Serum 0.44 mg/dL (0.55-1.02); EST Glomerular Filtration Rate 145 mL/min (>60); Est Glom Filt Rate - Afr Amer 175 mL/min (>60); Glucose 81 mg/dL (74-106); Potassium 4.3 mmol/L (3.5-5.1); Sodium Level 138 mmol/L (136-145)
== END ==
LOC: OLS.WHLEAS 06:30
PROVIDERS: PCP Family Medicine Geriatric Medicine; Visit Provider Internal Medicine
DX: G31.83 Neurocognitive disorder with Lewy bodies (principal); I10 Essential (primary) hypertension; M62.561 Muscle wasting and atrophy, not elsewhere classified, right lower leg; G30.9 Alzheimer's disease, unspecified
CPT/HCPCS: 36415; 80048; 85025

== ENCOUNTER → 2023-02-22 | Outpatient (REF) | payer MEDICARE, SELFPAY ==
[2023-02-22 08:52] LABS: Absolute Lymphocyte Count 2.14 X10^3/uL (0.83-4.51); Absolute Neutrophil Count 4.6 X10^3/uL (2.0-7.7); Basophil# 0.05 X10^3/uL; Basophil% 0.7 % (0-1); Eosinophil# 0.13 X10^3/uL; Eosinophils% 1.7 % (0-5); Hematocrit 44.4 % (37-47); Hemoglobin 13.8 g/dL (12.0-15.0); Lymphocyte # 2.14 X10^3/ul (0.83-4.51); Lymphocyte % 28.2 % (19-41); Mean Corp Hgb Conc 31.1 g/dL (32-36); Mean Corpuscular Hgb 28.3 pg (27.0-32.0); Mean Corpuscular Volume 91.2 fL (81-99); Mean Platelet Vol. 11.2 fl (6.2-12.0); Monocyte% 7.9 % (0-10); NRBC Flagged by Analyzer 0 % (0-5); Neutrophil # 4.64 X10^3/uL (2.7-7.7); Neutrophil % 61.2 % (47-70); Platelet Count 247 K/mm3 (150-450); RBC Distribution Width CV 13.8 % (11.6-14.6); RBC Distribution Width SD 46.6 fl (35.1-43.9); Red Blood Count 4.87 M/mm3 (4.2-5.4); White Blood Count 7.6 K/mm3 (4.4-11.0)
[2023-02-22 09:13] LABS: Anion Gap 4 (5-15); BUN 20 mg/dL (7-18); BUN/Creat Ratio 47.4 RATIO (10-20); Calcium,Total 8.8 mg/dL (8.5-10.1); Chloride 109 mmol/L (98-107); Creatinine, Serum 0.42 mg/dL (0.55-1.02); EST Glomerular Filtration Rate 152 mL/min (>60); Est Glom Filt Rate - Afr Amer 184 mL/min (>60); Glucose 83 mg/dL (74-106); Potassium 4.1 mmol/L (3.5-5.1); Sodium Level 143 mmol/L (136-145)
== END ==
LOC: OLS.WHLEAS 05:00
PROVIDERS: PCP Family Medicine Geriatric Medicine; Visit Provider Internal Medicine
DX: I10 Essential (primary) hypertension (principal)
CPT/HCPCS: 36415; 80048; 85025